=== PATIENT | male | born 1960 | race American Indian/Alaskan Native ===

== ENCOUNTER 2017-08-12 07:09 | Inpatient (IN) | payer MEDICARE, OTHER, MEDICAID ==
[2017-08-12 07:14] VITALS: BMI 29.1
[2017-08-12 08:15] LABS: BASO # 0.01 K/mm3 (0.0-2.0); BASO % 0.1 % (0.0-3.0); EOS % 0.2 % (1.5-5.0); GRAN # 9.5 (1.4-6.5); GRAN % 78.1 % (50.0-68.0); HEMOGLOBIN 9.6 g/dL (14.0-18.0); LYMPH # 1.5 (1.2-3.4); LYMPH % 12.2 % (22.0-35.0); MEAN CELL VOLUME 86.8 fl (80.0-105.0); MEAN CORPUSCULAR HEMOGLOBIN 28.2 pg (25.0-35.0); MEAN CORPUSCULAR HGB CONC 32.5 g/dl (31.0-37.0); MEAN PLATELET VOLUME 11.4 fl (7.0-11.0); MONO # 1.1 (0.1-0.6); MONO % 9.4 % (1.0-6.0); RBC 3.4 10^6/uL (3.5-6.1); RED CELL DISTRIBUTION WIDTH 14.9 % (11.5-14.5); WHITE BLOOD COUNT 12.2 10^3/ul (4.5-11.0)
[2017-08-12 08:27] LABS: INR 1.23 (0.93-1.08); PARTIAL THROMBOPLASTIN TIME 27.2 Seconds (25.1-36.5); PROTHROMBIN TIME 14.2 SECONDS (9.4-12.5)
[2017-08-12 08:33] LABS: ALB/GLOB RATIO 1.1 (1.1-1.8); ALBUMIN 3.2 g/dL (3.0-4.8); CALCIUM 9.7 mg/dL (8.4-10.5)
[2017-08-12 08:44] LABS: TROPONIN I 0.1 ng/mL
--- NOTE | 2017-08-12 08:45 | RAD ---
HISTORY: SOB COMPARISON: No prior. FINDINGS: LUNGS: Perihilar density is patchy in suspicious for early CHF or infiltrates. Reticular markings do not appear particularly increased and therefore pneumonia is slightly favored over CHF. Clinically correlate further. Cardiac size is enlarged. No pneumothorax or prominent pleural effusion bilaterally. Trace thickening of the minor fissure is noted versus fluid. PLEURA: As above. CARDIOVASCULAR: As above. OSSEOUS STRUCTURES: No significant abnormalities. VISUALIZED UPPER ABDOMEN: Normal. OTHER FINDINGS: None. IMPRESSION: Mild bilateral hilar pneumonia is questioned versus CHF. Clinically correlate further.
[2017-08-12] MEDS ORDERED: Azithromycin 500MG/NS 250ml 500 MG/250 ML BAG IVPB STA (08:49)
[2017-08-12] MEDS ORDERED: cefTRIAXone 1 gm 1 GM/100 ML BAG IVPB STA (08:50)
[2017-08-12 08:56] LABS: CK MB% 2.3 % (2.5-3.0); CK-MB 8.5 ng/mL (0.0-3.6)
--- NOTE | 2017-08-12 10:23 | ED PDOC ---
Arrival/HPI - General Chief Complaint: Shortness Of Breath Time Seen by Provider: 08/12/17 07:20 Historian: Patient - History of Present Illness Narrative History of Present Illness (Text): 08/12/17 10:20 Barak Ko is a 57 year old male, with no significant past medical history, who presents to the emergency department complaining of shortness of breath and cough for a couple of days. Patient states he feels "increased fluid in the body ". Patient just went on a cruise ship. Patient denies any fever, chills, chest pain, nausea, vomiting, diarrhea, abdominal pain, back pain, neck pain, headache , dizziness, or any other complaints. 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 Family/Social History - Physician Review Nursing Documentation Reviewed: Yes Family/Social History: Unknown Family HX Smoking Status: Never Smoked Hx Alcohol Use: No Hx Substance Use: No Allergies/Home Meds Allergies/Adverse Reactions: Allergies codeine Adverse Reaction (Verified 08/12/17 07:14) RASH Home Medications: Home Meds Medication Instructions Recorded Confirmed Aspirin [Aspirin Chewable] 1 tab PO DAILY 08/12/17 08/12/17 Atorvastatin [Lipitor] 40 mg PO DAILY 08/12/17 08/12/17 Calcitriol 25 mg PO DAILY 08/12/17 08/12/17 Carvedilol [Coreg] 1 tab PO DAILY 08/12/17 08/12/17 Cholecalciferol [Vitamin D 1000 IU] 2,000 iu PO DAILY 08/12/17 08/12/17 Doxazosin [Cardura] 8 mg PO DAILY 08/12/17 08/12/17 Ferrous Sulfate 5 gm PO DAILY 08/12/17 08/12/17 Furosemide [Lasix] 80 mg PO DAILY 08/12/17 08/12/17 Gabapentin [Neurontin] 300 mg PO DAILY 08/12/17 08/12/17 Insulin Glargine,Hum.rec.anlog 15 unit SC ACHS 08/12/17 08/12/17 [Lantus Solostar] Potassium Chloride [K-Dur 20 mEq 1 tab PO DAILY 08/12/17 08/12/17 ER Tab] Sertraline [Zoloft] 100 mg PO DAILY 08/12/17 08/12/17 Tetrabenazine [Xenazine] 1 tab PO DAILY 08/12/17 08/12/17 Tiotropium [Spiriva] 1 puff INH DAILY 08/12/17 08/12/17 amLODIPine [Norvasc] 5 mg PO DAILY 08/12/17 08/12/17 hydrALAZINE [Apresoline] 100 mg PO DAILY 08/12/17 08/12/17 Review of Systems - Physician Review All systems were reviewed & negative as marked: Yes - Review of Systems Constitutional: Normal Eyes: Normal ENT: Normal Respiratory: SOB, Cough Cardiovascular: Normal. absent: Chest Pain Gastrointestinal: Normal. absent: Abdominal Pain Genitourinary Male: Normal. absent: Dysuria, Frequency, Hematuria, Urinary Output Changes Musculoskeletal: Normal. absent: Back Pain, Neck Pain Skin: Normal. absent: Rash Neurological: Normal. absent: Headache, Dizziness Endocrine: Normal Hemo/Lymphatic: Normal Psychiatric: Normal Physical Exam Vital Signs Reviewed: Yes Vital Signs Pulse Resp BP Pulse Ox 08/12/17 09:10 81 18 169/97 H 95 08/12/17 08:59 169/99 H 08/12/17 07:23 20 92 L Temperature: Afebrile Blood Pressure: Normal Pulse: Regular Respiratory Rate: Normal Appearance: Positive for: Well-Appearing, Non-Toxic, Comfortable Pain Distress: None Mental Status: Positive for: Alert and Oriented X 3 - Systems Exam Head: Present: Atraumatic, Normocephalic Pupils: Present: PERRL Extroacular Muscles: Present: EOMI Conjunctiva: Present: Normal Mouth: Present: Moist Mucous Membranes Neck: Present: Normal Range of Motion Respiratory/Chest: Present: Rales (Rales bilaterally ). No: Respiratory Distress, Accessory Muscle Use Cardiovascular: Present: Murmurs (Systolic Murmur), Normal S1, S2. No: Regular Rate and Rhythm Abdomen: Present: Normal Bowel Sounds. No: Tenderness, Distention, Peritoneal Signs Back: Present: Normal Inspection Upper Extremity: Present: Normal Inspection. No: Cyanosis, Edema Lower Extremity: Present: Edema (Bilateral lower extremity edema) Neurological: Present: GCS=15, CN II-XII Intact, Speech Normal Skin: Present: Warm, Dry, Normal Color. No: Rashes Psychiatric: Present: Alert, Oriented x 3, Normal Insight, Normal Concentration Medical Decision Making ED Course and Treatment: 08/12/17 10:25 Impression: 57 year old male presents to the emergency department complaining of shortness of breath and cough for a couple days. Plan: -- EKG -- Labs -- Blood Culture -- O2 via Nasal Cannula -- Lasix -- Rocephin -- Zithromax -- Reassess and disposition Progress Notes: Case discussed with Dr. Pendleton who is aware and agrees with plan. Admits pt to telemetry for pneumonia and acute chronic renal failure. 08/12/17 10:29 EKG reviewed, shows Sinus at 81 bpm. T wave inversions in lateral leads. LVH. - Lab Interpretations Lab Results: 08/12/17 08:00 08/12/17 08:00 Lab Results 08/12/17 08:00: Influenza Typ A,B (EIA) Negative for flu a/b 08/12/17 08:00: Sodium 139, Potassium 3.7, Chloride 103, Carbon Dioxide 25, Anion Gap 14, BUN 58 H, Creatinine 4.1 H, Est GFR ( Amer) 18, Est GFR ( Non-Af Amer) 15, Random Glucose 283 H, Calcium 9.7, Magnesium 2.1, Total Bilirubin 0.2, AST 28, ALT 41, Alkaline Phosphatase 81, Lactate Dehydrogenase 558, Total Creatine Kinase 365 H, CK-MB (CK-2) 8.5 H, CK-MB (CK-2) % 2.3 L, Troponin I 0.10, NT-Pro-B Natriuret Pep 8120 H, Total Protein 6.0, Albumin 3.2, Globulin 2.8, Albumin/Globulin Ratio 1.1 08/12/17 08:00: PT 14.2 H, INR 1.23 H, APTT 27.2 08/12/17 08:00: WBC 12.2 H, RBC 3.40 L, Hgb 9.6 L, Hct 29.5 L, MCV 86.8, MCH 28.2, MCHC 32.5, RDW 14.9 H, Plt Count 185, MPV 11.4 H, Gran % 78.1 H, Lymph % ( Auto) 12.2 L, [place] % (Auto) 9.4 H, Eos % (Auto) 0.2 L, Baso % (Auto) 0.1, Gran # 9.50 H, Lymph # (Auto) 1.5, [place] # (Auto) 1.1 H, Eos # (Auto) 0.0, Baso # ( Auto) 0.01 08/12/17 07:45: Blood Type O POSITIVE, Antibody Screen Negative, BBK History Checked No verified bt - RAD Interpretation Radiology Orders: 08/12/17 07:23 CHEST PORTABLE [RAD] Stat - Medication Orders Current Medication Orders: Amlodipine Besylate (Norvasc) 5 mg PO DAILY [facility] Last Admin: 08/12/17 11:41 Dose: 5 mg [facility] Pulse and Blood Pressure Document 08/12/17 11:41 VM (Rec: 08/12/17 11:41 [place] [id number]) Pulse Pulse Rate (60-90) 84 Blood Pressure Blood Pressure (100/60-150/90) 176/101 Aspirin (Aspirin Chewable) 81 mg PO DAILY [facility] Atorvastatin Calcium (Lipitor) 40 mg PO DAILY [facility] Calcitriol (Rocaltrol) 0.25 mcg PO DAILY [facility] Carvedilol (Coreg) 25 mg PO DAILY [facility] Last Admin: 08/12/17 11:40 Dose: 25 mg MAR Pulse and Blood Pressure Document 08/12/17 11:40 VM (Rec: 08/12/17 11:41 [id number]) Pulse Pulse Rate (60-90) 84 Blood Pressure Blood Pressure (100/60-150/90) 176/101 Cholecalciferol (Vitamin D) 2,000 intlu PO DAILY [facility] Doxazosin Mesylate (Cardura) 8 mg PO DAILY [facility] Last Admin: 08/12/17 11:41 Dose: 8 mg Ferrous Gluconate (Fergon) 324 mg PO TID [facility] Last Admin: 08/12/17 17:00 Dose: 324 mg Furosemide (Lasix) 40 mg IVP BID [facility] Last Admin: 08/12/17 17:00 Dose: 40 mg MAR Blood Pressure Document 08/12/17 17:00 AE (Rec: 08/12/17 17:00 AE [id number]) Blood Pressure Blood Pressure (100/60-150/90) 146/88 IVP Administration Document 08/12/17 17:00 AE (Rec: 08/12/17 17:00 AE [id number]) Charges for Administration # of IVP Administrations 7 Gabapentin (Neurontin) 300 mg PO DAILY [facility] PRN Reason: Protocol Hydralazine HCl (Apresoline) 100 mg PO BID [facility] Last Admin: 08/12/17 17:01 Dose: 100 mg MAR Pulse and Blood Pressure Document 08/12/17 17:01 AE (Rec: 08/12/17 17:01 AE [id number]) Pulse Pulse Rate (60-90) 76 Blood Pressure Blood Pressure (100/60-150/90) 158/83 Ceftriaxone Sodium (Rocephin 1 Gram Ivpb) 1 gm in 100 mls @ 100 mls/hr IVPB DAILY [facility] PRN Reason: Protocol Azithromycin (Zithromax 500mg In Ns) 500 mg in 250 mls @ 167 mls/hr IVPB DAILY [facility] PRN Reason: Protocol Last Admin: 08/12/17 11:35 Dose: Insulin Detemir (Levemir) 15 unit SC HS [facility] Insulin Human Regular (Humulin R High) 0 units SC ACHS [facility] PRN Reason: Protocol Last Admin: 08/12/17 16:21 Dose: 2 units MAR Blood Glucose Document 08/12/17 16:21 AE (Rec: 08/12/17 16:21 AE [id number]) Blood Glucose Finger Stick Blood Glucose (70-120) 157 Subcutaneous Administrations Document 08/12/17 16:21 AE (Rec: 08/12/17 16:21 AE [id number]) Injection Site MAR Injection Site Left Arm Charges for Administration # of Subcutaneous Administrations 1 Tetrabenazine [ Xenazine] (Home Med) 1 tab PO DAILY [facility] Potassium Chloride (K-Dur 20 Meq Er Tab) 20 meq PO DAILY [facility] Tiotropium [place] (Spiriva) 18 mcg INH DAILY [facility] Vitamin B Complex/Vit C/Folic Acid (Nephro-[place]) 1 tab PO 0800 [facility] Discontinued Medications Aspirin (Aspirin Chewable) 1 mg PO DAILY [facility] Furosemide (Lasix) 40 mg IVP STAT STA Stop: 08/12/17 08:52 Last Admin: 08/12/17 08:59 Dose: 40 mg MAR Blood Pressure Document 08/12/17 08:59 EWO (Rec: 08/12/17 09:00 EWO [id number]) Blood Pressure Blood Pressure (100/60-150/90) 169/99 IVP Administration Document 08/12/17 08:59 EWO (Rec: 08/12/17 09:00 EWO [id number]) Charges for Administration # of IVP Administrations 1 Furosemide (Lasix) 40 mg IVP DAILY [facility] Furosemide (Lasix) 40 mg IVP STAT STA Stop: 08/12/17 11:22 Last Admin: 08/12/17 11:31 Dose: 40 mg MAR Blood Pressure Document 08/12/17 11:31 VM (Rec: 08/12/17 11:32 [place] [id number]) Blood Pressure Blood Pressure (100/60-150/90) 176/101 IVP Administration Document 08/12/17 11:31 VM (Rec: 08/12/17 11:32 [place] [id number]) Charges for Administration # of IVP Administrations 1 Hydralazine HCl (Apresoline) 100 mg PO DAILY [facility] Last Admin: 08/12/17 13:24 Dose: 100 mg MAR Pulse and Blood Pressure Document 08/12/17 13:24 AE (Rec: 08/12/17 13:24 AE [id number]) Pulse Pulse Rate (60-90) 74 Blood Pressure Blood Pressure (100/60-150/90) 158/96 Ceftriaxone Sodium (Rocephin 1 Gram Ivpb) 1 gm in 100 mls @ 100 mls/hr IVPB STAT STA PRN Reason: Protocol Stop: 08/12/17 09:49 Last Admin: 08/12/17 09:00 Dose: 100 mls/hr eMAR Start Stop Document 08/12/17 09:00 EWO (Rec: 08/12/17 09:00 EW [id number]) Intravenous Solution Start Date 08/12/17 Start Time 09:00 End Date 08/12/17 End time 10:00 Total Infusion Time 60 Azithromycin (Zithromax 500mg In Ns) 500 mg in 250 mls @ 167 mls/hr IVPB STAT STA PRN Reason: Protocol Stop: 08/12/17 10:18 Last Admin: 08/12/17 10:00 Dose: 167 mls/hr eMAR Start Stop Document 08/12/17 10:00 EWO (Rec: 08/12/17 10:01 EWO [id number] Intravenous Solution Start Date 08/12/17 Start Time 10:01 End Date 08/12/17 End time 11:30 Total Infusion Time 89 - Scribe Statement The provider has reviewed the documentation as recorded by the Jinaibesmer Weaver All medical record entries made by the Scribe were at my direction and personally dictated by me. I have reviewed the chart and agree that the record accurately reflects my personal performance of the history, physical exam, medical decision making, and the department course for this patient. I have also personally directed, reviewed, and agree with the discharge instructions and disposition. Disposition/Present on Arrival - Present on Arrival Any Indicators Present on Arrival: No History of DVT/PE: No History of Uncontrolled Diabetes: Yes Urinary Catheter: No History of Decub. Ulcer: No History Surgical Site Infection Following: None - Disposition Have Diagnosis and Disposition been Completed?: Yes Diagnosis: CHF exacerbation, Acute on chronic renal failure, Pneumonia Disposition: HOSPITALIZED Disposition Time: 08:45 Condition: FAIR
--- NOTE | 2017-08-12 11:30 | CP.PCM.CON ---
<Erich Mcgarry - Last Filed: 08/12/17 11:52> History of Present Illness - History of Present Illness History of Present Illness: 57 year old male with past medical history of DM, CKD Stage 3, HTN, PVD, stroke 9 years ago presents with shortness of breath from a cruise ship. Patient states he was on the cruise for 7 days and for the last couple of days he has felt short of breath and also "swollen". Patients states patient had an echo done within the past two years and was normal at the time. He denies any sick contacts or recent illness. Patient denies chest pain, fever, chills, nausea, abdominal pain or any other complaints at this time. PMH: DM, CKD Stage 3, HTN, PVD, stroke 9 years go PSH: denies Allergies: codeine Medications: See MAR Family Hx: NCO Social: denies tobacco, alcohol, or illicit drug use Review of Systems - Review of Systems Review of Systems: As per HPI - Constitutional Constitutional: Chills, Fever, Night Sweats - Cardiovascular Cardiovascular: Chest Pain Past Patient History - Infectious Disease Hx of Infectious Diseases: None - Past Social History Smoking Status: Never Smoked - CARDIAC Hx Cardiac Disorders: Yes Hx Congestive Heart Failure: (new dx) Hx Peripheral Vascular Disease: Yes - HEENT Other/Comment: wears glasses - RENAL Hx Chronic Kidney Disease: Yes Other/Comment: stage 3 kidney disease; on transplant list - ENDOCRINE/METABOLIC Hx Diabetes Mellitus Type 2: Yes - PSYCHIATRIC Hx Substance Use: No - SURGICAL HISTORY 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) Meds Allergies/Adverse Reactions: Allergies Allergy/AdvReac Type Severity Reaction Status Date / Time codeine AdvReac RASH Verified 08/12/17 07:14 - Medications Medications: Current Medications Amlodipine Besylate (Norvasc) 5 mg PO DAILY REPLACED BY [facility] Aspirin (Aspirin Chewable) 81 mg PO DAILY REPLACED BY [facility] Atorvastatin Calcium (Lipitor) 40 mg PO DAILY REPLACED BY [facility] Calcitriol (Rocaltrol) 0.25 mcg PO DAILY REPLACED BY [facility] Carvedilol (Coreg) 25 mg PO DAILY REPLACED BY [facility] Cholecalciferol (Vitamin D) 2,000 intlu PO DAILY REPLACED BY [facility] Doxazosin Mesylate (Cardura) 8 mg PO DAILY REPLACED BY [facility] Furosemide (Lasix) 40 mg IVP BID REPLACED BY [facility] Gabapentin (Neurontin) 300 mg PO DAILY [facility] PRN Reason: Protocol Hydralazine HCl (Apresoline) 100 mg PO BID [facility] Ceftriaxone Sodium (Rocephin 1 Gram Ivpb) 1 gm in 100 mls @ 100 mls/hr IVPB DAILY [facility] PRN Reason: Protocol Azithromycin (Zithromax 500mg In Ns) 500 mg in 250 mls @ 167 mls/hr IVPB DAILY [facility] PRN Reason: Protocol Insulin Detemir (Levemir) 15 unit SC HS [facility] Insulin Human Regular (Humulin R High) 0 units SC ACHS [facility] PRN Reason: Protocol Tetrabenazine [ Xenazine] (Home Med) 1 tab PO DAILY [facility] Potassium Chloride (K-Dur 20 Meq Er Tab) 20 meq PO DAILY [facility] Tiotropium [place] (Spiriva) 18 mcg INH DAILY [facility] Physical Exam - Constitutional Appears: Non-toxic, No Acute Distress - Head Exam Head Exam: ATRAUMATIC, NORMAL INSPECTION, NORMOCEPHALIC - Eye Exam Eye Exam: EOMI, Normal appearance, PERRL - ENT Exam ENT Exam: Mucous Membranes Moist - Neck Exam Neck exam: Negative for: Lymphadenopathy - Respiratory Exam Respiratory Exam: absent: Clear to Auscultation Bilateral Additional comments: crackles - Cardiovascular Exam Cardiovascular Exam: REGULAR RHYTHM, +S1, +S2 - GI/Abdominal Exam GI & Abdominal Exam: Normal Bowel Sounds. absent: Distended, Tenderness - Extremities Exam Extremities exam: Positive for: pedal edema - Neurological Exam Neurological exam: Alert, Oriented x3 - Skin Skin Exam: Normal Color, Warm Results - Vital Signs Recent Vital Signs: Last Vital Signs Temp Pulse 81 08/12/17 09:10 Resp 18 08/12/17 09:10 BP 169/97 H 08/12/17 09:10 Pulse Ox 95 08/12/17 09:10 - Labs Result Diagrams: 08/12/17 08:00 08/12/17 08:00 Assessment & Plan - Assessment and Plan (Free Text) Assessment: 7 year old male with past medical history of DM, CKD Stage 3, HTN, PVD, stroke 9 years ago presents with shortness of breath. Patient will be monitored in the ICU for CHF exacerbation. Plan: CHF CKD DM HTN Plan: -supplemental oxygen as needed, maintain sat>92% -diuresis -BNP -chest xray -replete electrolytes -UA -monitor kidney function -renal US -Nephro following -daily labs -strict IOs -ISS -procal -mitchell culture -echo -cardiology following -continue home meds for bp control -abx -HHD -monitor in the MICU -GI, DVT Prophylaxis <Tico Patel - Last Filed: 08/12/17 12:22> Meds - Medications Medications: Current Medications Amlodipine Besylate (Norvasc) 5 mg PO DAILY REPLACED BY [facility] Last Admin: 08/12/17 11:41 Dose: 5 mg Aspirin (Aspirin Chewable) 81 mg PO DAILY REPLACED BY [facility] Atorvastatin Calcium (Lipitor) 40 mg PO DAILY REPLACED BY [facility] Calcitriol (Rocaltrol) 0.25 mcg PO DAILY REPLACED BY [facility] Carvedilol (Coreg) 25 mg PO DAILY REPLACED BY [facility] Last Admin: 08/12/17 11:40 Dose: 25 mg Cholecalciferol (Vitamin D) 2,000 intlu PO DAILY [facility] Doxazosin Mesylate (Cardura) 8 mg PO DAILY REPLACED BY [facility] Last Admin: 08/12/17 11:41 Dose: 8 mg Furosemide (Lasix) 40 mg IVP BID REPLACED BY [facility] Gabapentin (Neurontin) 300 mg PO DAILY REPLACED BY [facility] PRN Reason: Protocol Hydralazine HCl (Apresoline) 100 mg PO BID REPLACED BY [facility] Ceftriaxone Sodium (Rocephin 1 Gram Ivpb) 1 gm in 100 mls @ 100 mls/hr IVPB DAILY REPLACED BY [facility] PRN Reason: Protocol Azithromycin (Zithromax 500mg In Ns) 500 mg in 250 mls @ 167 mls/hr IVPB DAILY [facility] PRN Reason: Protocol Last Admin: 08/12/17 11:35 Dose: Not Given Insulin Detemir (Levemir) 15 unit SC HS REPLACED BY [facility] Insulin Human Regular (Humulin R High) 0 units SC ACHS REPLACED BY [facility] PRN Reason: Protocol Last Admin: 08/12/17 11:42 Dose: 4 units Tetrabenazine [ Xenazine] (Home Med) 1 tab PO DAILY REPLACED BY [facility] Potassium Chloride (K-Dur 20 Meq Er Tab) 20 meq PO DAILY REPLACED BY [facility] Tiotropium [place] (Spiriva) 18 mcg INH DAILY REPLACED BY [facility] Results - Vital Signs Recent Vital Signs: Last Vital Signs Temp 98 F 08/12/17 11:29 Pulse 84 08/12/17 11:41 Resp 22 08/12/17 11:29 BP 176/101 H 08/12/17 11:41 Pulse Ox 95 08/12/17 09:10 - Labs Result Diagrams: 08/12/17 08:00 08/12/17 08:00 Labs: Laboratory Results - last 24 hr 08/12/17 08/12/17 08/12/17 11:05 11:05 11:27 POC Glucose (mg/dL) 213 H Iron TIBC % Saturation Troponin I 0.09 Blood Type Confirm O POSITIVE 08/12/17 11:41 POC Glucose (mg/dL) Iron 32 L TIBC 185 L % Saturation 17 L Troponin I Blood Type Confirm Assessment & Plan - Assessment and Plan (Free Text) Plan: Patient seen and examined with resident on rounds, agree with note with following additions/exceptions: Patient is 57yo male with PMhx of CKD stage III, HTN, CVA with no residual weakness, presented after cruise ship with weakness and SOB. Pt with volume overload and possible consolidation on CXR Volume Overload CHF CKD HTN PNA Recommend: - supp o2 as needed - panculture, UCx, BCx, Procal - CAP coverage, Azithro, Rocephin - IV diuresis - ECHO - cardiology consult - Renal consult - BP control - FS control - GI ppx - DVT ppx - Transfer to CCU
[2017-08-12] MEDS: Azithromycin 500MG/NS 250ml 500 MG/250 ML BAG IVPB SCH (11:35)
[2017-08-12] MEDS: Insulin Reg-HIGH-Coverage SC SCH ×3 (11:42→22:03)
[2017-08-12 11:59] LABS: IRON 32 ug/dL (45-180)
[2017-08-12 12:08] LABS: % IRON SATURATION 17 % (20-55); TOTAL IRON BINDING CAPACITY 185 ug/dL (261-462)
--- NOTE | 2017-08-12 12:23 | CON ---
DATE: 08/12/2017 CARDIOLOGY CONSULTATION HISTORY OF PRESENT ILLNESS: The patient is a 57-year-old male who just came off the cruise ship with 2 days of progressive CHF symptoms and dyspnea. PAST MEDICAL HISTORY: Includes multiorgan disease including renal insufficiency, hypertension, diabetes mellitus as well as hypercholesterolemia. He denies previous history of cardiac disease. He does admit to intermittent pedal edema. No angina noted. SOCIAL HISTORY: The patient denies smoking. REVIEW OF SYSTEMS: A 14-point review of systems was reviewed in detail. No additional cardiac symptoms are noted. PHYSICAL EXAMINATION VITAL SIGNS: Blood pressure is 169/97, heart rate is in the 80s. NECK: Negative JVD. LUNGS: Bilateral rales at the bases. HEART: Reveals S1, S2. EXTREMITIES: Trace edema. LABORATORY DATA: EKG shows normal sinus rhythm with diffuse ST-T changes. The hemoglobin is 9.7, white count is 12.2. Troponins is 0.10 with a BUN and creatinine is 58 and 4.1 with a ProBNP of 8120. The pulse ox is 90%. IMPRESSION: 1. Acute systolic congestive heart failure. 2. Questionable pneumonia. 3. Renal insufficiency. 4. Diabetes mellitus. 5. Hypertension. 6. Hypercholesterolemia. 7. Dyspnea. 8. Intermittent pedal edema. 9. Renal insufficiency. PLAN: Given these findings, we will add an additional Lasix to him. The patient should be monitored in the ICU given his low O2 and his multisystem disease. There is a question of a non-STEMI. Dale Yeh MD
--- NOTE | 2017-08-12 13:04 | CP.PCM.CON ---
History of Present Illness - History of Present Illness History of Present Illness: Nephrology Consultation Note: Assessment: Critical Acute dyspnea with fluid overload and pneumonia ? CHF ? COPD Acute Kidney Injury (N17.9) Diabetic chronic Kidney Disease (E11.22) Hypertensive Chronic Kidney Disease (I12.9) Chronic Kidney Disease (N18.4) Stage 4 with ? mg proteinuria (R80.9) likely due to DM/HTN Anemia (D64.9), Hyperphosphatemia (E83.39), Secondary Hyperparathyroidism (E21.1 ), HTN (I12.9) Plan No acute need for renal replacement therapy at this time. Hypertension control with meds as ordered. Patient not on ACEI/ARB due to AGUST[facility] Monitor Input/Output, daily weights and renal function with basic metabolic panel We will add iron supplements and multivitamin Continue home dose of calcitriol Agree with IV Lasix. Increase dose Up to 80 mg if needed. Check urine analysis, spot protein/creatinine and albumin/creatinine ratio, renal sonogram. Check for 25-OH vitamin D, iPTH, phosphorus level Check iron studies Dose meds/antibiotics for reduced GFR. Avoid fleets enema/magnesium based laxatives. Avoid nephrotoxins/NSAIDs/ iodinated contrast (unless needed emergently) Glycemic control Further work up/management as per primary team Thanks for allowing me to participate in care of your patient. Will follow patient with you. Please call if any Qs Dr Augustin Alcantara Office: [phone] Chief Complaint; Shortness of breath HPI: Pt is a 57 male with hx of diabetes Mellitus ( 18 years) With Retinopathy, hypertension (years), CKD 4 with baseLine serum creatinine in mid 3 range, Patient aware about kidney disease for the last 10 years, follows up in [place], was on a cruise for last 7 days presented with complaints of Shortness of breath for the last 3 days with associated cough phlegm and leg swelling. pt also noted to have low-grade temperature on the cruise. He was not able to follow low salt diet while on the cruise Denies OTC/herbal meds or NSAIDs No recent iodinated contrast exposure. No obvious episodes of low BP. ROS: Cardiovascular: No chest pain. Pulmonary:c/o shortness of breath Gastrointestinal: denies abdominal pain No nausea. No vomiting. Genitourinary: No pain while urinating. Denies blood in urine. All other negative except as mentioned in HPI Physical Examination: General Appearance: Comfortable, in no acute respiratory distress, co-operative . Vitals reviewed and noted as below Head; Atraumatic, normocephalic ENT: no ulcers no thrush. Tongue is midline. Oropharynx: no rash or ulcers. EYES: Pupils are equal, round and reactive to light accommodation. Eye muscles and extraocular movement intact. Sclera is anicteric. Neck; supple no lymphadenopathy, no thyromegaly or bruit Lungs: Increased respiratory rate/effort. Breath sounds bilateral equal and With wheezing Heart: Normal rate. s1s2 normal. No rub or gallop. Extremities: 1+ edema. No varicose veins Neurological: Patient is alert, awake and oriented to person, place and time. No focal deficit. Strength bilateral appropriate and equal Skin: Warm and dry. Normal turgor. No rash. Palpitation: Normal elasticity for age Abdomen: Abdomen is soft. Bowel sounds +. There is no abdominal tenderness, no guarding/rigidity no organomegaly Psych: normal insight and normal affect/mood MSK: no joint tenderness or swelling. Digits and nails normal, no deformity : kidney or bladder not palpable Labs/imaging reviewed. Past medical history, past surgical history, family history, social history, allergy reviewed and noted as below Family hx: no hx of CKD. 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) Meds Allergies/Adverse Reactions: Allergies Allergy/AdvReac Type Severity Reaction Status Date / Time codeine AdvReac RASH Verified 08/12/17 07:14 - Medications Medications: Current Medications Amlodipine Besylate (Norvasc) 5 mg PO DAILY [facility] Last Admin: 08/12/17 11:41 Dose: 5 mg Aspirin (Aspirin Chewable) 81 mg PO DAILY [facility] Atorvastatin Calcium (Lipitor) 40 mg PO DAILY [facility] Calcitriol (Rocaltrol) 0.25 mcg PO DAILY [facility] Carvedilol (Coreg) 25 mg PO DAILY [facility] Last Admin: 08/12/17 11:40 Dose: 25 mg Cholecalciferol (Vitamin D) 2,000 intlu PO DAILY [facility] Doxazosin Mesylate (Cardura) 8 mg PO DAILY [facility] Last Admin: 08/12/17 11:41 Dose: 8 mg Ferrous Gluconate (Fergon) 324 mg PO TID [facility] Furosemide (Lasix) 40 mg IVP BID [facility] Gabapentin (Neurontin) 300 mg PO DAILY [facility] Reason: Protocol Hydralazine HCl (Apresoline) 100 mg PO BID [facility] Ceftriaxone Sodium (Rocephin 1 Gram Ivpb) 1 gm in 100 mls @ 100 mls/hr IVPB DAILY [facility] Reason: Protocol Azithromycin (Zithromax 500mg In Ns) 500 mg in 250 mls @ 167 mls/hr IVPB DAILY [facility] Reason: Protocol Last Admin: 08/12/17 11:35 Dose: Not Given Insulin Detemir (Levemir) 15 unit SC HS [facility] Insulin Human Regular (Humulin R High) 0 units SC ACHS [facility] Reason: Protocol Last Admin: 08/12/17 11:42 Dose: 4 units Tetrabenazine [ Xenazine] (Home Med) 1 tab PO DAILY [facility] Potassium Chloride (K-Dur 20 Meq Er Tab) 20 meq PO DAILY [facility] Tiotropium [place] (Spiriva) 18 mcg INH DAILY [facility] Vitamin B Complex/Vit C/Folic Acid (Nephro-[place]) 1 tab PO 0800 [facility] Results - Vital Signs Recent Vital Signs: Last Vital Signs Temp 98 F 08/12/17 11:29 Pulse 84 08/12/17 11:41 Resp 22 08/12/17 11:29 BP 176/101 H 08/12/17 11:41 Pulse Ox 90 L 08/12/17 11:00 - Labs Result Diagrams: 08/12/17 08:00 08/12/17 08:00 Labs: Laboratory Results - last 24 hr 08/12/17 08/12/17 08/12/17 11:05 11:05 11:27 POC Glucose (mg/dL) 213 H Iron TIBC % Saturation Troponin I 0.09 Blood Type Confirm O POSITIVE 08/12/17 11:41 POC Glucose (mg/dL) Iron 32 L TIBC 185 L % Saturation 17 L Troponin I Blood Type Confirm
--- NOTE | 2017-08-12 14:13 | US ---
PROCEDURE: Ultrasound of the Kidneys HISTORY: [facility] COMPARISON: None available. TECHNIQUE: Sonogram of the kidneys. FINDINGS: RIGHT KIDNEY: Measures: 11.9 x 5.2 x 4.8 cm. Corticomedullary echo pattern is poor with no differentiation appreciable in the repaired appearing slightly echogenic suggesting intrinsic medical renal disease. Multiple right renal cysts are identified, all which appear benign and simple with no color Doppler blood flow related. midpole right kidney laterally measuring 2.2 x 2.3 x 2.2 cm. Additional similar but smaller cysts are identified in the upper mid and lower pole right kidney. No definite solid mass identified grossly. No right hydronephrosis. No urolithiasis. LEFT KIDNEY: Measures: 13.3 x 6.8 x 5.8 cm. Corticomedullary echo pattern is poor with no differentiation appreciable in the repaired appearing slightly echogenic suggesting intrinsic medical renal disease. Multiple right renal cysts are identified, all which appear benign and simple with no color Doppler blood flow related. The largest is identified at the upper pole, slightly exophytic measuring 4.7 x 4.4 x 4.3 cm. No hydronephrosis or urolithiasis. OTHER FINDINGS: None. IMPRESSION: Findings most compatible with intrinsic medical renal disease. No hydronephrosis identified bilaterally. Multiple bilateral renal cysts are identified which appear benign.
[2017-08-12 16:16] LABS: CREATININE,RANDOM URINE 47 mg/dL; TOTAL PROTEIN,RANDOM URINE 114 mg/L
[2017-08-12 16:23] LABS: URINE BILIRUBIN NEGATIVE (NEGATIVE); URINE BLOOD NEGATIVE (NEGATIVE); URINE GLUCOSE (UA) NEGATIVE (NEGATIVE); URINE LEUKOCYTE ESTERASE NEGATIVE Leu/uL (NEGATIVE); URINE PROTEIN 100 mg/dL (<30 mg/dL); URINE UROBILINOGEN 0.2 E.U./dL (<1 E.U./dL)
[2017-08-12 16:24] LABS: URINE APPEARANCE CLEAR (CLEAR); URINE COLOR LIGHT YELLOW (YELLOW)
[2017-08-12 16:28] LABS: URINE RBC 0 - 2 /hpf (0-2)
[2017-08-12 16:29] LABS: URINE AMORPHOUS SEDIMENT FEW; URINE BACTERIA MOD (NEG); URINE COARSE GRANULAR CAST TRACE /hpf (0-2); URINE FINE GRANULAR CAST 0 - 2 /hpf (0-2)
--- NOTE | 2017-08-12 21:35 | HP ---
HISTORY OF PRESENT ILLNESS: I was called down to the emergency room to see Barak, admitted him to the hospital, he comes from a cruise ship, he was in the [facility], and he was not eating well, lots of bad foods, lots of salty foods and sugary foods, and now he is very short of breath and coughing for a few days. Feels like there is flu in his body. PAST MEDICAL HISTORY: He has got a past medical history of hypertension, diabetes, CHF, obesity, amputation of the fourth and fifth toes on the left. He has high cholesterol, CHF, peripheral neuropathy, depression, hypertension. FAMILY HISTORY: Hypertension and diabetes in the family. SOCIAL HISTORY: He does not smoke. He does drink alcohol. No substance abuse. ALLERGIES: HE HAS ALLERGIES TO CODEINE. MEDICATIONS: He is on aspirin, Lipitor, calcitriol, Coreg, vitamin D, iron, Lasix, Neurontin, Lantus, potassium, Zoloft, Spiriva, Norvasc, Apresoline. REVIEW OF SYSTEMS: No acute vision or hearing changes. No sore throat. No neck pain. He is short of breath with cough. No chest pain or palpitations. No nausea, vomiting, constipation, or diarrhea. No problems urinating. No back pain. No apparent rashes or ulcers he knows of. No headache or dizziness. No anxiety or depression. No sweating. PHYSICAL EXAMINATION: VITAL SIGNS: He has an 81 pulse, 18 respiratory rate, 169/97 blood pressure, 95% O2 sat on room air. GENERAL: He is well appearing and comfortable. Alert and oriented x3 in the ER. HEENT: Head is atraumatic, normocephalic. Extraocular muscles are intact. Pupils equal and reactive to light. Throat is moist. NECK: Supple. HEART: Regular rate. Normal S1 and S2. LUNGS: Congestion bilaterally with rales and rhonchi. ABDOMEN: Soft and nontender, with positive bowel sounds. Morbidly obese. No guarding. No rebound. No CVA tenderness. EXTREMITIES: Have trace edema in bilateral lower extremities, +1/4. NEUROLOGIC: GCS is 15. Cranial nerves II through XII grossly intact. Speech is normal. SKIN: Warm and dry. No apparent rashes or ulcers appreciated. PSYCHIATRIC: Alert and oriented x3. LYMPH NODES: Thyroid midline. No palpable appreciable lymphadenopathy. LABORATORY DATA: He had multiple tests. He has 139 sodium, potassium 3.7, BUN 58, creatinine 4.1. He is having some renal insufficiency. His blood sugar is 283. His blood sugars are high. He has got a calcium of 9.7, magnesium 2.1, total bili is 0.2, AST is 20, ALT is 41, alk phos 81, lactate dehydrogenase is 558. Troponin I is 0.1, which is indeterminate, I will check 2 more. His BNP is quite high at 8120 CHF. Total protein is 6. INR is 1.23. He has got a 12.2 white count, 9.6 hemoglobin, 29.5 hematocrit, with a 185 platelets, a little bit anemic . He had a chest x-ray, which showed mild bilateral hilar pneumonia and CHF. ASSESSMENT AND PLAN: We will put him in the hospital. Consult with Renal, Pulmonary and Cardiology. IV Lasix, IV antibiotics. Renal involvement, insulin coverage. Hopefully he will improve, he is on oxygen, getting physical therapy. Alan Pendleton DO [facility]
[2017-08-12] MEDS: Insulin Detemir 100 units/ml Vial (Levemir) SC SCH (22:05)
--- NOTE | 2017-08-12 23:31 | CARD ---
APPROVED REPORT EKG Measurement Heart [id number] NM [id number] [id number] <Conclusion> Normal sinus rhythm Left ventricular hypertrophy with repolarization abnormality Abnormal ECG
[2017-08-13 05:26] LABS: HEMOGLOBIN 9.1 g/dL (14.0-18.0); MEAN CELL VOLUME 87.4 fl (80.0-105.0); MEAN PLATELET VOLUME 10.6 fl (7.0-11.0); RBC 3.25 10^6/uL (3.5-6.1); RED CELL DISTRIBUTION WIDTH 14.8 % (11.5-14.5); WHITE BLOOD COUNT 9.2 10^3/ul (4.5-11.0)
[2017-08-13 05:39] LABS: ALBUMIN 2.9 g/dL (3.0-4.8); CALCIUM 9.4 mg/dL (8.4-10.5)
[2017-08-13] MEDS ORDERED: Potassium Chloride 20 mEq ER Tab PO STA (06:08)
[2017-08-13] MEDS: Levalbuterol 1.25 MG/3 ML Inhal Soln UD IH SCH ×3 (08:01→20:28)
[2017-08-13] MEDS: Insulin Reg-HIGH-Coverage SC SCH ×4 (09:03→22:40)
[2017-08-13] MEDS: cefTRIAXone 1 gm 1 GM/100 ML BAG IVPB SCH (09:20)
[2017-08-13] MEDS: Tiotropium 18 mcg Cap For Inhalation INH SCH (09:21)
[2017-08-13] MEDS: Azithromycin 500MG/NS 250ml 500 MG/250 ML BAG IVPB SCH (09:21)
--- NOTE | 2017-08-13 09:24 | CP.CCUPN ---
<Erich Mcgarry - Last Filed: 08/13/17 09:24> CCU Subjective - Physician Review Subjective (Free Text): Patient seen and evaluated bedside. No acute issues overnight. Patient states he feels better than yesterday, breathing improved and made a lot of urine. Patient denies chest pain, abdominal pain or any other complaints at this time. 08/13/17 09:19 CCU Objective - Vital Signs / Intake & Output Vital Signs (Last 4 hours): Vital Signs Pulse Resp BP Pulse Ox 08/13/17 06:00 85 27 H 169/102 H 94 L Intake and Output (Last 8hrs): Intake & Output 08/12/17 08/13/17 08/13/17 22:59 06:59 14:59 Intake Total 740 400 Output Total 900 1125 Balance -160 -725 Intake: IV 260 left antecubital 250 left forearm 10 Oral 480 400 Output: Urine 900 1125 Urine, Voided 900 1125 Other: Voiding Method Urinal # Voids Urine, Voided 2 # Bowel Movements 0 - Physical Exam Head: Positive for: Atraumatic, Normocephalic Pupils: Positive for: PERRL Extroacular Muscles: Positive for: EOMI Conjunctiva: Positive for: Normal Mouth: Positive for: Moist Mucous Membranes Neck: Positive for: Normal Range of Motion Respiratory/Chest: Positive for: Rales. Negative for: Respiratory Distress, Accessory Muscle Use Cardiovascular: Positive for: Murmurs (Systolic Murmur), Normal S1, S2. Negative for: Regular Rate and Rhythm Abdomen: Positive for: Normal Bowel Sounds. Negative for: Tenderness, Distention, Peritoneal Signs Upper Extremity: Positive for: Normal Inspection. Negative for: Cyanosis, Edema Lower Extremity: Positive for: Edema (Bilateral lower extremity edema) Neurological: Positive for: GCS=15, CN II-XII Intact, Speech Normal Skin: Positive for: Warm, Dry, Normal Color. Negative for: Rashes Psychiatric: Positive for: Alert, Oriented x 3, Normal Insight, Normal Concentration - Medications Active Medications: Active Medications Generic Name Dose Route Start Last Admin Trade Name Freq PRN Reason Stop Dose Admin Amlodipine Besylate 5 mg 08/12/17 10:45 08/12/17 11:41 Norvasc PO 5 mg DAILY [facility] Administration Aspirin 81 mg 08/12/17 11:25 Aspirin Chewable PO DAILY [facility] Atorvastatin Calcium 40 mg 08/13/17 10:00 Lipitor PO DAILY [facility] Calcitriol 0.25 mcg 08/13/17 10:00 Rocaltrol PO DAILY [facility] Carvedilol 25 mg 08/12/17 10:45 08/12/17 11:40 Coreg PO 25 mg DAILY [facility] Administration Cholecalciferol 2,000 intlu 08/13/17 10:00 Vitamin D PO DAILY [facility] Doxazosin Mesylate 8 mg 08/12/17 10:45 08/12/17 11:41 Cardura PO 8 mg DAILY [facility] Administration Ferrous Gluconate 324 mg 08/12/17 14:00 08/12/17 17:00 Fergon PO 324 mg TID [facility] Administration Furosemide 40 mg 08/12/17 18:00 08/12/17 17:00 Lasix IVP 40 mg BID [facility] Administration Gabapentin 300 mg 08/13/17 10:00 Neurontin PO DAILY [facility] Protocol Hydralazine HCl 100 mg 08/12/17 18:00 08/12/17 17:01 Apresoline PO 100 mg BID [facility] Administration Hydralazine HCl 10 mg 08/12/17 21:19 Apresoline IVP Q6 PRN SBP above 160 and DBP above 80 Ceftriaxone Sodium 1 gm in 100 mls @ 100 mls/hr 08/13/17 10:00 Rocephin 1 Gram Ivpb IVPB DAILY [facility] Protocol Azithromycin 500 mg in 250 mls @ 167 mls/hr 08/12/17 11:00 08/12/17 11:35 Zithromax 500mg In Ns IVPB Not Given DAILY [facility] Protocol Insulin Detemir 15 unit 08/12/17 22:00 08/12/17 22:05 Levemir SC 15 unit HS [facility] Administration Insulin Human Regular 0 units 08/12/17 11:30 08/13/17 09:03 Humulin R High SC Not Given ACHS [facility] Protocol Levalbuterol HCl 1.25 mg 08/13/17 08:00 08/13/17 08:01 Xopenex IH 1.25 mg TIDRESP [facility] Administration Tetrabenazine [ 1 tab 08/13/17 10:00 Xenazine] (Home PO Med) DAILY [facility] Potassium Chloride 20 meq 08/13/17 10:00 K-Dur 20 Meq Er Tab PO DAILY [facility] Tiotropium [place] 18 mcg 03/25/18 10:00 Spiriva INH DAILY [facility] Vitamin B Complex/Vit C/Folic Acid 1 tab 08/13/17 08:00 Nephro-[place]ber[place] PO 0800 [facility] - Patient Studies Lab Studies: Lab Studies 08/13/17 08/13/17 08/13/17 Range/Units 09:01 06:40 05:00 WBC (4.5-11.0) 10^3/ul RBC (3.5-6.1) 10^6/uL Hgb (14.0-18.0) g/dL Hct (42.0-52.0) % MCV (80.0-105.0) fl MCH (25.0-35.0) pg MCHC (31.0-37.0) g/dl RDW (11.5-14.5) % Plt Count (120.0-450.0) 10^3/uL MPV (7.0-11.0) fl Sodium 145 (132-148) mmol/L Potassium 3.5 L (3.6-5.0) mmol/L Chloride 109 H (98-107) mmol/L Carbon Dioxide 30 (21-33) mmol/L Anion Gap 9 L (10-20) BUN 57 H (7-21) mg/dL Creatinine 3.9 H (0.8-1.5) mg/dl Est GFR ( Amer) 19 Est GFR (Non-Af Amer) 16 POC Glucose (mg/dL) 103 (65-110) mg/dL Random Glucose 91 (70-110) mg/dL Calcium 9.4 (8.4-10.5) mg/dL Magnesium 2.2 (1.7-2.2) mg/dL Iron (45-180) ug/dL TIBC (261-462) ug/dL % Saturation (20-55) % Ferritin ng/mL Total Bilirubin 0.3 (0.2-1.3) mg/dL AST 33 (17-59) U/L ALT 40 (7-56) U/L Alkaline Phosphatase 56 (38-126) U/L Troponin I ng/mL Total Protein 5.7 L (5.8-8.3) g/dL Albumin 2.9 L (3.0-4.8) g/dL Globulin 2.8 gm/dL Albumin/Globulin Ratio 1.0 L (1.1-1.8) Procalcitonin (0.19-0.49) NG/ML Urine Color (YELLOW) Urine Appearance (CLEAR) Urine pH (4.7-8.0) Ur Specific [place] (1.005-1.035) Urine Protein (<30 mg/dL) mg/dL Urine Glucose (UA) (NEGATIVE) mg/dL Urine Ketones (NEGATIVE) mg/dL Urine Blood (NEGATIVE) Urine Nitrate (NEGATIVE) Urine Bilirubin (NEGATIVE) Urine Urobilinogen (<1 E.U./dL) E.U./dL Ur Leukocyte Esterase (NEGATIVE) Alexandru/uL Urine RBC (0-2) /hpf Urine WBC (0-6) /hpf Ur Epithelial Cells (0-5) /hpf Amorphous Sediment Urine Bacteria (NEG) Fine Granular Casts (0-2) /hpf Coarse Granular Casts (0-2) /hpf Urine Other Ur Random Creatinine mg/dL U Random Total Protein mg/L Blood Type Confirm 08/13/17 08/12/17 08/12/17 Range/Units 05:00 21:50 19:00 WBC 9.2 D (4.5-11.0) 10^3/ul RBC 3.25 L (3.5-6.1) 10^6/uL Hgb 9.1 L (14.0-18.0) g/dL Hct 28.4 L (42.0-52.0) % MCV 87.4 (80.0-105.0) fl MCH 28.0 (25.0-35.0) pg MCHC 32.0 (31.0-37.0) g/dl RDW 14.8 H (11.5-14.5) % Plt Count 190 (120.0-450.0) 10^3/uL MPV 10.6 (7.0-11.0) fl Sodium (132-148) mmol/L Potassium (3.6-5.0) mmol/L Chloride (98-107) mmol/L Carbon Dioxide (21-33) mmol/L Anion Gap (10-20) BUN (7-21) mg/dL Creatinine (0.8-1.5) mg/dl Est GFR ( Amer) Est GFR (Non-Af Amer) POC Glucose (mg/dL) 146 H (65-110) mg/dL Random Glucose (70-110) mg/dL Calcium (8.4-10.5) mg/dL Magnesium (1.7-2.2) mg/dL Iron (45-180) ug/dL TIBC (261-462) ug/dL % Saturation (20-55) % Ferritin ng/mL Total Bilirubin (0.2-1.3) mg/dL AST (17-59) U/L ALT (7-56) U/L Alkaline Phosphatase (38-126) U/L Troponin I 0.09 ng/mL Total Protein (5.8-8.3) g/dL Albumin (3.0-4.8) g/dL Globulin gm/dL Albumin/Globulin Ratio (1.1-1.8) Procalcitonin (0.19-0.49) NG/ML Urine Color (YELLOW) Urine Appearance (CLEAR) Urine pH (4.7-8.0) Ur Specific [place] (1.005-1.035) Urine Protein (<30 mg/dL) mg/dL Urine Glucose (UA) (NEGATIVE) mg/dL Urine Ketones (NEGATIVE) mg/dL Urine Blood (NEGATIVE) Urine Nitrate (NEGATIVE) Urine Bilirubin (NEGATIVE) Urine Urobilinogen (<1 E.U./dL) E.U./dL Ur Leukocyte Esterase (NEGATIVE) Alexandru/uL Urine RBC (0-2) /hpf Urine WBC (0-6) /hpf Ur Epithelial Cells (0-5) /hpf Amorphous Sediment Urine Bacteria (NEG) Fine Granular Casts (0-2) /hpf Coarse Granular Casts (0-2) /hpf Urine Other Ur Random Creatinine mg/dL U Random Total Protein mg/L Blood Type Confirm 08/12/17 08/12/17 08/12/17 Range/Units 15:30 15:30 15:12 WBC (4.5-11.0) 10^3/ul RBC (3.5-6.1) 10^6/uL Hgb (14.0-18.0) g/dL Hct (42.0-52.0) % MCV (80.0-105.0) fl MCH (25.0-35.0) pg MCHC (31.0-37.0) g/dl RDW (11.5-14.5) % Plt Count (120.0-450.0) 10^3/uL MPV (7.0-11.0) fl Sodium (132-148) mmol/L Potassium (3.6-5.0) mmol/L Chloride (98-107) mmol/L Carbon Dioxide (21-33) mmol/L Anion Gap (10-20) BUN (7-21) mg/dL Creatinine (0.8-1.5) mg/dl Est GFR ( Amer) Est GFR (Non-Af Amer) POC Glucose (mg/dL) 157 H (65-110) mg/dL Random Glucose (70-110) mg/dL Calcium (8.4-10.5) mg/dL Magnesium (1.7-2.2) mg/dL Iron (45-180) ug/dL TIBC (261-462) ug/dL % Saturation (20-55) % Ferritin ng/mL Total Bilirubin (0.2-1.3) mg/dL AST (17-59) U/L ALT (7-56) U/L Alkaline Phosphatase (38-126) U/L Troponin I ng/mL Total Protein (5.8-8.3) g/dL Albumin (3.0-4.8) g/dL Globulin gm/dL Albumin/Globulin Ratio (1.1-1.8) Procalcitonin (0.19-0.49) NG/ML Urine Color Light yellow (YELLOW) Urine Appearance Clear (CLEAR) Urine pH 5.0 (4.7-8.0) Ur Specific [place] 1.010 (1.005-1.035) Urine Protein 100 H (<30 mg/dL) mg/dL Urine Glucose (UA) Negative (NEGATIVE) mg/dL Urine Ketones Negative (NEGATIVE) mg/dL Urine Blood Negative (NEGATIVE) Urine Nitrate Negative (NEGATIVE) Urine Bilirubin Negative (NEGATIVE) Urine Urobilinogen 0.2 (<1 E.U./dL) E.U./dL Ur Leukocyte Esterase Negative (NEGATIVE) Alexandru/uL Urine RBC 0 - 2 (0-2) /hpf Urine WBC 1 - 3 (0-6) /hpf Ur Epithelial Cells None (0-5) /hpf Amorphous Sediment Few Urine Bacteria Mod (NEG) Fine Granular Casts 0 - 2 (0-2) /hpf Coarse Granular Casts Trace H (0-2) /hpf Urine Other Fiber Ur Random Creatinine 47 mg/dL U Random Total Protein 114 mg/L Blood Type Confirm 08/12/17 08/12/17 08/12/17 Range/Units 11:50 11:41 11:30 WBC (4.5-11.0) 10^3/ul RBC (3.5-6.1) 10^6/uL Hgb (14.0-18.0) g/dL Hct (42.0-52.0) % MCV (80.0-105.0) fl MCH (25.0-35.0) pg MCHC (31.0-37.0) g/dl RDW (11.5-14.5) % Plt Count (120.0-450.0) 10^3/uL MPV (7.0-11.0) fl Sodium (132-148) mmol/L Potassium (3.6-5.0) mmol/L Chloride (98-107) mmol/L Carbon Dioxide (21-33) mmol/L Anion Gap (10-20) BUN (7-21) mg/dL Creatinine (0.8-1.5) mg/dl Est GFR ( Amer) Est GFR (Non-Af Amer) POC Glucose (mg/dL) (65-110) mg/dL Random Glucose (70-110) mg/dL Calcium (8.4-10.5) mg/dL Magnesium (1.7-2.2) mg/dL Iron 32 L (45-180) ug/dL TIBC 185 L (261-462) ug/dL % Saturation 17 L (20-55) % Ferritin 215.0 ng/mL Total Bilirubin (0.2-1.3) mg/dL AST (17-59) U/L ALT (7-56) U/L Alkaline Phosphatase (38-126) U/L Troponin I ng/mL Total Protein (5.8-8.3) g/dL Albumin (3.0-4.8) g/dL Globulin gm/dL Albumin/Globulin Ratio (1.1-1.8) Procalcitonin 0.44 (0.19-0.49) NG/ML Urine Color (YELLOW) Urine Appearance (CLEAR) Urine pH (4.7-8.0) Ur Specific [place] (1.005-1.035) Urine Protein (<30 mg/dL) mg/dL Urine Glucose (UA) (NEGATIVE) mg/dL Urine Ketones (NEGATIVE) mg/dL Urine Blood (NEGATIVE) Urine Nitrate (NEGATIVE) Urine Bilirubin (NEGATIVE) Urine Urobilinogen (<1 E.U./dL) E.U./dL Ur Leukocyte Esterase (NEGATIVE) Alexandru/uL Urine RBC (0-2) /hpf Urine WBC (0-6) /hpf Ur Epithelial Cells (0-5) /hpf Amorphous Sediment Urine Bacteria (NEG) Fine Granular Casts (0-2) /hpf Coarse Granular Casts (0-2) /hpf Urine Other Ur Random Creatinine mg/dL U Random Total Protein mg/L Blood Type Confirm 08/12/17 08/12/17 08/12/17 Range/Units 11:27 11:05 11:05 WBC (4.5-11.0) 10^3/ul RBC (3.5-6.1) 10^6/uL Hgb (14.0-18.0) g/dL Hct (42.0-52.0) % MCV (80.0-105.0) fl MCH (25.0-35.0) pg MCHC (31.0-37.0) g/dl RDW (11.5-14.5) % Plt Count (120.0-450.0) 10^3/uL MPV (7.0-11.0) fl Sodium (132-148) mmol/L Potassium (3.6-5.0) mmol/L Chloride (98-107) mmol/L Carbon Dioxide (21-33) mmol/L Anion Gap (10-20) BUN (7-21) mg/dL Creatinine (0.8-1.5) mg/dl Est GFR ( Amer) Est GFR (Non-Af Amer) POC Glucose (mg/dL) 213 H (65-110) mg/dL Random Glucose (70-110) mg/dL Calcium (8.4-10.5) mg/dL Magnesium (1.7-2.2) mg/dL Iron (45-180) ug/dL TIBC (261-462) ug/dL % Saturation (20-55) % Ferritin ng/mL Total Bilirubin (0.2-1.3) mg/dL AST (17-59) U/L ALT (7-56) U/L Alkaline Phosphatase (38-126) U/L Troponin I 0.09 ng/mL Total Protein (5.8-8.3) g/dL Albumin (3.0-4.8) g/dL Globulin gm/dL Albumin/Globulin Ratio (1.1-1.8) Procalcitonin (0.19-0.49) NG/ML Urine Color (YELLOW) Urine Appearance (CLEAR) Urine pH (4.7-8.0) Ur Specific [place] (1.005-1.035) Urine Protein (<30 mg/dL) mg/dL Urine Glucose (UA) (NEGATIVE) mg/dL Urine Ketones (NEGATIVE) mg/dL Urine Blood (NEGATIVE) Urine Nitrate (NEGATIVE) Urine Bilirubin (NEGATIVE) Urine Urobilinogen (<1 E.U./dL) E.U./dL Ur Leukocyte Esterase (NEGATIVE) Alexandru/uL Urine RBC (0-2) /hpf Urine WBC (0-6) /hpf Ur Epithelial Cells (0-5) /hpf Amorphous Sediment Urine Bacteria (NEG) Fine Granular Casts (0-2) /hpf Coarse Granular Casts (0-2) /hpf Urine Other Ur Random Creatinine mg/dL U Random Total Protein mg/L Blood Type Confirm O POSITIVE Laboratory Results - last 24 hr 08/12/17 08/12/17 08/12/17 11:05 11:05 11:27 WBC RBC Hgb Hct MCV MCH MCHC RDW Plt Count MPV Sodium Potassium Chloride Carbon Dioxide Anion Gap BUN Creatinine Est GFR ( Amer) Est GFR (Non-Af Amer) POC Glucose (mg/dL) 213 H Random Glucose Calcium Magnesium Iron TIBC % Saturation Ferritin Total Bilirubin AST ALT Alkaline Phosphatase Troponin I 0.09 Total Protein Albumin Globulin Albumin/Globulin Ratio Procalcitonin Urine Color Urine Appearance Urine pH Ur Specific [place] Urine Protein Urine Glucose (UA) Urine Ketones Urine Blood Urine Nitrate Urine Bilirubin Urine Urobilinogen Ur Leukocyte Esterase Urine RBC Urine WBC Ur Epithelial Cells Amorphous Sediment Urine Bacteria Fine Granular Casts Coarse Granular Casts Urine Other Ur Random Creatinine U Random Total Protein Blood Type Confirm O POSITIVE 08/12/17 08/12/17 08/12/17 11:30 11:41 11:50 WBC RBC Hgb Hct MCV MCH MCHC RDW Plt Count MPV Sodium Potassium Chloride Carbon Dioxide Anion Gap BUN Creatinine Est GFR ( Amer) Est GFR (Non-Af Amer) POC Glucose (mg/dL) Random Glucose Calcium Magnesium Iron 32 L TIBC 185 L % Saturation 17 L Ferritin 215.0 Total Bilirubin AST ALT Alkaline Phosphatase Troponin I Total Protein Albumin Globulin Albumin/Globulin Ratio Procalcitonin 0.44 Urine Color Urine Appearance Urine pH Ur Specific [place] Urine Protein Urine Glucose (UA) Urine Ketones Urine Blood Urine Nitrate Urine Bilirubin Urine Urobilinogen Ur Leukocyte Esterase Urine RBC Urine WBC Ur Epithelial Cells Amorphous Sediment Urine Bacteria Fine Granular Casts Coarse Granular Casts Urine Other Ur Random Creatinine U Random Total Protein Blood Type Confirm 08/12/17 08/12/17 08/12/17 15:12 15:30 15:30 WBC RBC Hgb Hct MCV MCH MCHC RDW Plt Count MPV Sodium Potassium Chloride Carbon Dioxide Anion Gap BUN Creatinine Est GFR ( Amer) Est GFR (Non-Af Amer) POC Glucose (mg/dL) 157 H Random Glucose Calcium Magnesium Iron TIBC % Saturation Ferritin Total Bilirubin AST ALT Alkaline Phosphatase Troponin I Total Protein Albumin Globulin Albumin/Globulin Ratio Procalcitonin Urine Color Light yellow Urine Appearance Clear Urine pH 5.0 Ur Specific [place] 1.010 Urine Protein 100 H Urine Glucose (UA) Negative Urine Ketones Negative Urine Blood Negative Urine Nitrate Negative Urine Bilirubin Negative Urine Urobilinogen 0.2 Ur Leukocyte Esterase Negative Urine RBC 0 - 2 Urine WBC 1 - 3 Ur Epithelial Cells None Amorphous Sediment Few Urine Bacteria Mod Fine Granular Casts 0 - 2 Coarse Granular Casts Trace H Urine Other Fiber Ur Random Creatinine 47 U Random Total Protein 114 Blood Type Confirm 08/12/17 08/12/17 08/13/17 19:00 21:50 05:00 WBC 9.2 D RBC 3.25 L Hgb 9.1 L Hct 28.4 L MCV 87.4 MCH 28.0 MCHC 32.0 RDW 14.8 H Plt Count 190 MPV 10.6 Sodium Potassium Chloride Carbon Dioxide Anion Gap BUN Creatinine Est GFR ( Amer) Est GFR (Non-Af Amer) POC Glucose (mg/dL) 146 H Random Glucose Calcium Magnesium Iron TIBC % Saturation Ferritin Total Bilirubin AST ALT Alkaline Phosphatase Troponin I 0.09 Total Protein Albumin Globulin Albumin/Globulin Ratio Procalcitonin Urine Color Urine Appearance Urine pH Ur Specific [place] Urine Protein Urine Glucose (UA) Urine Ketones Urine Blood Urine Nitrate Urine Bilirubin Urine Urobilinogen Ur Leukocyte Esterase Urine RBC Urine WBC Ur Epithelial Cells Amorphous Sediment Urine Bacteria Fine Granular Casts Coarse Granular Casts Urine Other Ur Random Creatinine U Random Total Protein Blood Type Confirm 08/13/17 08/13/17 08/13/17 05:00 06:40 09:01 WBC RBC Hgb Hct MCV MCH MCHC RDW Plt Count MPV Sodium 145 Potassium 3.5 L Chloride 109 H Carbon Dioxide 30 Anion Gap 9 L BUN 57 H Creatinine 3.9 H Est GFR ( Amer) 19 Est GFR (Non-Af Amer) 16 POC Glucose (mg/dL) 103 Random Glucose 91 Calcium 9.4 Magnesium 2.2 Iron TIBC % Saturation Ferritin Total Bilirubin 0.3 AST 33 ALT 40 Alkaline Phosphatase 56 Troponin I Total Protein 5.7 L Albumin 2.9 L Globulin 2.8 Albumin/Globulin Ratio 1.0 L Procalcitonin Urine Color Urine Appearance Urine pH Ur Specific [place] Urine Protein Urine Glucose (UA) Urine Ketones Urine Blood Urine Nitrate Urine Bilirubin Urine Urobilinogen Ur Leukocyte Esterase Urine RBC Urine WBC Ur Epithelial Cells Amorphous Sediment Urine Bacteria Fine Granular Casts Coarse Granular Casts Urine Other Ur Random Creatinine U Random Total Protein Blood Type Confirm Fingerstick Blood Sugar Results: 103 Review of Systems - Cardiovascular Cardiovascular: absent: Chest Pain, Dyspnea - Respiratory Respiratory: Dyspnea on Exertion. absent: Cough, Dyspnea, Wheezing - Gastrointestinal Gastrointestinal: absent: Abdominal Pain, Nausea, Vomiting - Neurological Neurological: absent: Dizziness, Headaches Critical Care Progress Note - Nutrition Nutrition: Nutrition Category Date Time Status Renal Diet [DIET] Diets 08/12/17 Dinner Ordered Assessment/Plan - Assessment and Plan (Free Text) Assessment: 57yo male with PMhx of CKD stage III, HTN, CVA with no residual weakness, [place] with weakness and SOB. Pt with volume overload and possible consolidation on CXR. Plan: CHF CKD HTN PNA Plan: - supp o2 as needed - pcultures pending - procal low - abx for PNA - IV diuresis - ECHO pending read - cardiology consult, follow recs - Renal consult, follow recs - BP control - FS control - GI ppx - DVT ppx - CCU monitoring <Tico Patel - Last Filed: 08/13/17 10:41> CCU Objective - Vital Signs / Intake & Output Vital Signs (Last 4 hours): Vital Signs Pulse BP 03/25/18 09:19 85 176/104 H 08/13/17 09:17 176/104 H 08/13/17 09:16 85 176/104 H 08/13/17 09:13 84 176/104 H Intake and Output (Last 8hrs): Intake & Output 08/12/17 08/13/17 08/13/17 22:59 06:59 14:59 Intake Total 740 400 Output Total 900 1125 Balance -160 -725 Intake: IV 260 left antecubital 250 left forearm 10 Oral 480 400 Output: Urine 900 1125 Urine, Voided 900 1125 Other: Voiding Method Urinal # Voids Urine, Voided 2 # Bowel Movements 0 - Medications Active Medications: Active Medications Generic Name Dose Route Start Last Admin Trade Name Freq PRN Reason Stop Dose Admin Amlodipine Besylate 5 mg 08/12/17 10:45 08/13/17 09:19 Norvasc PO 5 mg DAILY [facility] Administration Aspirin 81 mg 08/12/17 11:25 08/13/17 09:15 Aspirin Chewable PO 81 mg DAILY [facility] Administration Atorvastatin Calcium 40 mg 08/13/17 10:00 Lipitor PO DAILY [facility] Calcitriol 0.25 mcg 08/13/17 10:00 08/13/17 09:34 Rocaltrol PO 0.25 mcg DAILY [facility] Administration Carvedilol 25 mg 08/12/17 10:45 08/13/17 09:16 Coreg PO 25 mg DAILY [facility] Administration Cholecalciferol 2,000 intlu 08/13/17 10:00 Vitamin D PO DAILY [facility] Doxazosin Mesylate 8 mg 08/12/17 10:45 08/13/17 09:15 Cardura PO 8 mg DAILY [facility] Administration Ferrous Gluconate 324 mg 08/12/17 14:00 08/13/17 09:34 Fergon PO 324 mg TID [facility] Administration Furosemide 40 mg 08/12/17 18:00 08/13/17 09:17 Lasix IVP 40 mg BID [facility] Administration Gabapentin 300 mg 08/13/17 10:00 08/13/17 09:19 Neurontin PO 300 mg DAILY [facility] Administration Protocol Hydralazine HCl 100 mg 08/12/17 18:00 08/13/17 09:13 Apresoline PO 100 mg BID [facility] Administration Hydralazine HCl 10 mg 08/12/17 21:19 Apresoline IVP Q6 PRN SBP above 160 and DBP above 80 Ceftriaxone Sodium 1 gm in 100 mls @ 100 mls/hr 08/13/17 10:00 08/13/17 09:20 Rocephin 1 Gram Ivpb IVPB 100 mls/hr DAILY [facility] Administration Protocol Azithromycin 500 mg in 250 mls @ 167 mls/hr 08/12/17 11:00 08/13/17 09:21 Zithromax 500mg In Ns IVPB 167 mls/hr DAILY [facility] Administration Protocol Insulin Detemir 15 unit 08/12/17 22:00 08/12/17 22:05 Levemir SC 15 unit HS [facility] Administration Insulin Human Regular 0 units 08/12/17 11:30 08/13/17 09:03 Humulin R High SC Not Given ACHS [facility] Protocol Levalbuterol HCl 1.25 mg 08/13/17 08:00 08/13/17 08:01 Xopenex IH 1.25 mg TIDRESP [facility] Administration Tetrabenazine [ 1 tab 08/13/17 10:00 Xenazine] (Home PO Med) DAILY [facility] Potassium Chloride 20 meq 08/13/17 10:00 K-Dur 20 Meq Er Tab PO DAILY [facility] Tiotropium [place] 18 mcg 08/13/17 10:00 08/13/17 09:21 Spiriva INH 18 mcg DAILY [facility] Administration Vitamin B Complex/Vit C/Folic Acid 1 tab 08/13/17 08:00 Nephro-[place] PO 0800 [facility] - Patient Studies Lab Studies: Lab Studies 08/13/17 08/13/17 08/13/17 Range/Units 09:01 06:40 05:00 WBC (4.5-11.0) 10^3/ul RBC (3.5-6.1) 10^6/uL Hgb (14.0-18.0) g/dL Hct (42.0-52.0) % MCV (80.0-105.0) fl MCH (25.0-35.0) pg MCHC (31.0-37.0) g/dl RDW (11.5-14.5) % Plt Count (120.0-450.0) 10^3/uL MPV (7.0-11.0) fl Sodium 145 (132-148) mmol/L Potassium 3.5 L (3.6-5.0) mmol/L Chloride 109 H (98-107) mmol/L Carbon Dioxide 30 (21-33) mmol/L Anion Gap 9 L (10-20) BUN 57 H (7-21) mg/dL Creatinine 3.9 H (0.8-1.5) mg/dl Est GFR ( Amer) 19 Est GFR (Non-Af Amer) 16 POC Glucose (mg/dL) 103 (65-110) mg/dL Random Glucose 91 (70-110) mg/dL Calcium 9.4 (8.4-10.5) mg/dL Magnesium 2.2 (1.7-2.2) mg/dL Iron (45-180) ug/dL TIBC (261-462) ug/dL % Saturation (20-55) % Ferritin ng/mL Total Bilirubin 0.3 (0.2-1.3) mg/dL AST 33 (17-59) U/L ALT 40 (7-56) U/L Alkaline Phosphatase 56 (38-126) U/L Troponin I ng/mL Total Protein 5.7 L (5.8-8.3) g/dL Albumin 2.9 L (3.0-4.8) g/dL Globulin 2.8 gm/dL Albumin/Globulin Ratio 1.0 L (1.1-1.8) Procalcitonin (0.19-0.49) NG/ML Urine Color (YELLOW) Urine Appearance (CLEAR) Urine pH (4.7-8.0) Ur Specific [place] (1.005-1.035) Urine Protein (<30 mg/dL) mg/dL Urine Glucose (UA) (NEGATIVE) mg/dL Urine Ketones (NEGATIVE) mg/dL Urine Blood (NEGATIVE) Urine Nitrate (NEGATIVE) Urine Bilirubin (NEGATIVE) Urine Urobilinogen (<1 E.U./dL) E.U./dL Ur Leukocyte Esterase (NEGATIVE) Alexandru/uL Urine RBC (0-2) /hpf Urine WBC (0-6) /hpf Ur Epithelial Cells (0-5) /hpf Amorphous Sediment Urine Bacteria (NEG) Fine Granular Casts (0-2) /hpf Coarse Granular Casts (0-2) /hpf Urine Other Ur Random Creatinine mg/dL U Random Total Protein mg/L Blood Type Confirm 08/13/17 08/12/17 08/12/17 Range/Units 05:00 21:50 19:00 WBC 9.2 D (4.5-11.0) 10^3/ul RBC 3.25 L (3.5-6.1) 10^6/uL Hgb 9.1 L (14.0-18.0) g/dL Hct 28.4 L (42.0-52.0) % MCV 87.4 (80.0-105.0) fl MCH 28.0 (25.0-35.0) pg MCHC 32.0 (31.0-37.0) g/dl RDW 14.8 H (11.5-14.5) % Plt Count 190 (120.0-450.0) 10^3/uL MPV 10.6 (7.0-11.0) fl Sodium (132-148) mmol/L Potassium (3.6-5.0) mmol/L Chloride (98-107) mmol/L Carbon Dioxide (21-33) mmol/L Anion Gap (10-20) BUN (7-21) mg/dL Creatinine (0.8-1.5) mg/dl Est GFR ( Amer) Est GFR (Non-Af Amer) POC Glucose (mg/dL) 146 H (65-110) mg/dL Random Glucose (70-110) mg/dL Calcium (8.4-10.5) mg/dL Magnesium (1.7-2.2) mg/dL Iron (45-180) ug/dL TIBC (261-462) ug/dL % Saturation (20-55) % Ferritin ng/mL Total Bilirubin (0.2-1.3) mg/dL AST (17-59) U/L ALT (7-56) U/L Alkaline Phosphatase (38-126) U/L Troponin I 0.09 ng/mL Total Protein (5.8-8.3) g/dL Albumin (3.0-4.8) g/dL Globulin gm/dL Albumin/Globulin Ratio (1.1-1.8) Procalcitonin (0.19-0.49) NG/ML Urine Color (YELLOW) Urine Appearance (CLEAR) Urine pH (4.7-8.0) Ur Specific [place] (1.005-1.035) Urine Protein (<30 mg/dL) mg/dL Urine Glucose (UA) (NEGATIVE) mg/dL Urine Ketones (NEGATIVE) mg/dL Urine Blood (NEGATIVE) Urine Nitrate (NEGATIVE) Urine Bilirubin (NEGATIVE) Urine Urobilinogen (<1 E.U./dL) E.U./dL Ur Leukocyte Esterase (NEGATIVE) Alexandru/uL Urine RBC (0-2) /hpf Urine WBC (0-6) /hpf Ur Epithelial Cells (0-5) /hpf Amorphous Sediment Urine Bacteria (NEG) Fine Granular Casts (0-2) /hpf Coarse Granular Casts (0-2) /hpf Urine Other Ur Random Creatinine mg/dL U Random Total Protein mg/L Blood Type Confirm 08/12/17 08/12/17 08/12/17 Range/Units 15:30 15:30 15:12 WBC (4.5-11.0) 10^3/ul RBC (3.5-6.1) 10^6/uL Hgb (14.0-18.0) g/dL Hct (42.0-52.0) % MCV (80.0-105.0) fl MCH (25.0-35.0) pg MCHC (31.0-37.0) g/dl RDW (11.5-14.5) % Plt Count (120.0-450.0) 10^3/uL MPV (7.0-11.0) fl Sodium (132-148) mmol/L Potassium (3.6-5.0) mmol/L Chloride (98-107) mmol/L Carbon Dioxide (21-33) mmol/L Anion Gap (10-20) BUN (7-21) mg/dL Creatinine (0.8-1.5) mg/dl Est GFR ( Amer) Est GFR (Non-Af Amer) POC Glucose (mg/dL) 157 H (65-110) mg/dL Random Glucose (70-110) mg/dL Calcium (8.4-10.5) mg/dL Magnesium (1.7-2.2) mg/dL Iron (45-180) ug/dL TIBC (261-462) ug/dL % Saturation (20-55) % Ferritin ng/mL Total Bilirubin (0.2-1.3) mg/dL AST (17-59) U/L ALT (7-56) U/L Alkaline Phosphatase (38-126) U/L Troponin I ng/mL Total Protein (5.8-8.3) g/dL Albumin (3.0-4.8) g/dL Globulin gm/dL Albumin/Globulin Ratio (1.1-1.8) Procalcitonin (0.19-0.49) NG/ML Urine Color Light yellow (YELLOW) Urine Appearance Clear (CLEAR) Urine pH 5.0 (4.7-8.0) Ur Specific [place] 1.010 (1.005-1.035) Urine Protein 100 H (<30 mg/dL) mg/dL Urine Glucose (UA) Negative (NEGATIVE) mg/dL Urine Ketones Negative (NEGATIVE) mg/dL Urine Blood Negative (NEGATIVE) Urine Nitrate Negative (NEGATIVE) Urine Bilirubin Negative (NEGATIVE) Urine Urobilinogen 0.2 (<1 E.U./dL) E.U./dL Ur Leukocyte Esterase Negative (NEGATIVE) Alexandru/uL Urine RBC 0 - 2 (0-2) /hpf Urine WBC 1 - 3 (0-6) /hpf Ur Epithelial Cells None (0-5) /hpf Amorphous Sediment Few Urine Bacteria Mod (NEG) Fine Granular Casts 0 - 2 (0-2) /hpf Coarse Granular Casts Trace H (0-2) /hpf Urine Other Fiber Ur Random Creatinine 47 mg/dL U Random Total Protein 114 mg/L Blood Type Confirm 08/12/17 08/12/17 08/12/17 Range/Units 11:50 11:41 11:30 WBC (4.5-11.0) 10^3/ul RBC (3.5-6.1) 10^6/uL Hgb (14.0-18.0) g/dL Hct (42.0-52.0) % MCV (80.0-105.0) fl MCH (25.0-35.0) pg MCHC (31.0-37.0) g/dl RDW (11.5-14.5) % Plt Count (120.0-450.0) 10^3/uL MPV (7.0-11.0) fl Sodium (132-148) mmol/L Potassium (3.6-5.0) mmol/L Chloride (98-107) mmol/L Carbon Dioxide (21-33) mmol/L Anion Gap (10-20) BUN (7-21) mg/dL Creatinine (0.8-1.5) mg/dl Est GFR ( Amer) Est GFR (Non-Af Amer) POC Glucose (mg/dL) (65-110) mg/dL Random Glucose (70-110) mg/dL Calcium (8.4-10.5) mg/dL Magnesium (1.7-2.2) mg/dL Iron 32 L (45-180) ug/dL TIBC 185 L (261-462) ug/dL % Saturation 17 L (20-55) % Ferritin 215.0 ng/mL Total Bilirubin (0.2-1.3) mg/dL AST (17-59) U/L ALT (7-56) U/L Alkaline Phosphatase (38-126) U/L Troponin I ng/mL Total Protein (5.8-8.3) g/dL Albumin (3.0-4.8) g/dL Globulin gm/dL Albumin/Globulin Ratio (1.1-1.8) Procalcitonin 0.44 (0.19-0.49) NG/ML Urine Color (YELLOW) Urine Appearance (CLEAR) Urine pH (4.7-8.0) Ur Specific [place] (1.005-1.035) Urine Protein (<30 mg/dL) mg/dL Urine Glucose (UA) (NEGATIVE) mg/dL Urine Ketones (NEGATIVE) mg/dL Urine Blood (NEGATIVE) Urine Nitrate (NEGATIVE) Urine Bilirubin (NEGATIVE) Urine Urobilinogen (<1 E.U./dL) E.U./dL Ur Leukocyte Esterase (NEGATIVE) Alexandru/uL Urine RBC (0-2) /hpf Urine WBC (0-6) /hpf Ur Epithelial Cells (0-5) /hpf Amorphous Sediment Urine Bacteria (NEG) Fine Granular Casts (0-2) /hpf Coarse Granular Casts (0-2) /hpf Urine Other Ur Random Creatinine mg/dL U Random Total Protein mg/L Blood Type Confirm 08/12/17 08/12/17 08/12/17 Range/Units 11:27 11:05 11:05 WBC (4.5-11.0) 10^3/ul RBC (3.5-6.1) 10^6/uL Hgb (14.0-18.0) g/dL Hct (42.0-52.0) % MCV (80.0-105.0) fl MCH (25.0-35.0) pg MCHC (31.0-37.0) g/dl RDW (11.5-14.5) % Plt Count (120.0-450.0) 10^3/uL MPV (7.0-11.0) fl Sodium (132-148) mmol/L Potassium (3.6-5.0) mmol/L Chloride (98-107) mmol/L Carbon Dioxide (21-33) mmol/L Anion Gap (10-20) BUN (7-21) mg/dL Creatinine (0.8-1.5) mg/dl Est GFR ( Amer) Est GFR (Non-Af Amer) POC Glucose (mg/dL) 213 H (65-110) mg/dL Random Glucose (70-110) mg/dL Calcium (8.4-10.5) mg/dL Magnesium (1.7-2.2) mg/dL Iron (45-180) ug/dL TIBC (261-462) ug/dL % Saturation (20-55) % Ferritin ng/mL Total Bilirubin (0.2-1.3) mg/dL AST (17-59) U/L ALT (7-56) U/L Alkaline Phosphatase (38-126) U/L Troponin I 0.09 ng/mL Total Protein (5.8-8.3) g/dL Albumin (3.0-4.8) g/dL Globulin gm/dL Albumin/Globulin Ratio (1.1-1.8) Procalcitonin (0.19-0.49) NG/ML Urine Color (YELLOW) Urine Appearance (CLEAR) Urine pH (4.7-8.0) Ur Specific [place] (1.005-1.035) Urine Protein (<30 mg/dL) mg/dL Urine Glucose (UA) (NEGATIVE) mg/dL Urine Ketones (NEGATIVE) mg/dL Urine Blood (NEGATIVE) Urine Nitrate (NEGATIVE) Urine Bilirubin (NEGATIVE) Urine Urobilinogen (<1 E.U./dL) E.U./dL Ur Leukocyte Esterase (NEGATIVE) Alexandru/uL Urine RBC (0-2) /hpf Urine WBC (0-6) /hpf Ur Epithelial Cells (0-5) /hpf Amorphous Sediment Urine Bacteria (NEG) Fine Granular Casts (0-2) /hpf Coarse Granular Casts (0-2) /hpf Urine Other Ur Random Creatinine mg/dL U Random Total Protein mg/L Blood Type Confirm O POSITIVE Laboratory Results - last 24 hr 08/12/17 08/12/17 08/12/17 11:05 11:05 11:27 WBC RBC Hgb Hct MCV MCH MCHC RDW Plt Count MPV Sodium Potassium Chloride Carbon Dioxide Anion Gap BUN Creatinine Est GFR ( Amer) Est GFR (Non-Af Amer) POC Glucose (mg/dL) 213 H Random Glucose Calcium Magnesium Iron TIBC % Saturation Ferritin Total Bilirubin AST ALT Alkaline Phosphatase Troponin I 0.09 Total Protein Albumin Globulin Albumin/Globulin Ratio Procalcitonin Urine Color Urine Appearance Urine pH Ur Specific [place] Urine Protein Urine Glucose (UA) Urine Ketones Urine Blood Urine Nitrate Urine Bilirubin Urine Urobilinogen Ur Leukocyte Esterase Urine RBC Urine WBC Ur Epithelial Cells Amorphous Sediment Urine Bacteria Fine Granular Casts Coarse Granular Casts Urine Other Ur Random Creatinine U Random Total Protein Blood Type Confirm O POSITIVE 08/12/17 08/12/17 08/12/17 11:30 11:41 11:50 WBC RBC Hgb Hct MCV MCH MCHC RDW Plt Count MPV Sodium Potassium Chloride Carbon Dioxide Anion Gap BUN Creatinine Est GFR ( Amer) Est GFR (Non-Af Amer) POC Glucose (mg/dL) Random Glucose Calcium Magnesium Iron 32 L TIBC 185 L % Saturation 17 L Ferritin 215.0 Total Bilirubin AST ALT Alkaline Phosphatase Troponin I Total Protein Albumin Globulin Albumin/Globulin Ratio Procalcitonin 0.44 Urine Color Urine Appearance Urine pH Ur Specific [place] Urine Protein Urine Glucose (UA) Urine Ketones Urine Blood Urine Nitrate Urine Bilirubin Urine Urobilinogen Ur Leukocyte Esterase Urine RBC Urine WBC Ur Epithelial Cells Amorphous Sediment Urine Bacteria Fine Granular Casts Coarse Granular Casts Urine Other Ur Random Creatinine U Random Total Protein Blood Type Confirm 08/12/17 08/12/17 08/12/17 15:12 15:30 15:30 WBC RBC Hgb Hct MCV MCH MCHC RDW Plt Count MPV Sodium Potassium Chloride Carbon Dioxide Anion Gap BUN Creatinine Est GFR ( Amer) Est GFR (Non-Af Amer) POC Glucose (mg/dL) 157 H Random Glucose Calcium Magnesium Iron TIBC % Saturation Ferritin Total Bilirubin AST ALT Alkaline Phosphatase Troponin I Total Protein Albumin Globulin Albumin/Globulin Ratio Procalcitonin Urine Color Light yellow Urine Appearance Clear Urine pH 5.0 Ur Specific [place] 1.010 Urine Protein 100 H Urine Glucose (UA) Negative Urine Ketones Negative Urine Blood Negative Urine Nitrate Negative Urine Bilirubin Negative Urine Urobilinogen 0.2 Ur Leukocyte Esterase Negative Urine RBC 0 - 2 Urine WBC 1 - 3 Ur Epithelial Cells None Amorphous Sediment Few Urine Bacteria Mod Fine Granular Casts 0 - 2 Coarse Granular Casts Trace H Urine Other Fiber Ur Random Creatinine 47 U Random Total Protein 114 Blood Type Confirm 08/12/17 08/12/17 08/13/17 19:00 21:50 05:00 WBC 9.2 D RBC 3.25 L Hgb 9.1 L Hct 28.4 L MCV 87.4 MCH 28.0 MCHC 32.0 RDW 14.8 H Plt Count 190 MPV 10.6 Sodium Potassium Chloride Carbon Dioxide Anion Gap BUN Creatinine Est GFR ( Amer) Est GFR (Non-Af Amer) POC Glucose (mg/dL) 146 H Random Glucose Calcium Magnesium Iron TIBC % Saturation Ferritin Total Bilirubin AST ALT Alkaline Phosphatase Troponin I 0.09 Total Protein Albumin Globulin Albumin/Globulin Ratio Procalcitonin Urine Color Urine Appearance Urine pH Ur Specific [place] Urine Protein Urine Glucose (UA) Urine Ketones Urine Blood Urine Nitrate Urine Bilirubin Urine Urobilinogen Ur Leukocyte Esterase Urine RBC Urine WBC Ur Epithelial Cells Amorphous Sediment Urine Bacteria Fine Granular Casts Coarse Granular Casts Urine Other Ur Random Creatinine U Random Total Protein Blood Type Confirm 08/13/17 08/13/17 08/13/17 05:00 06:40 09:01 WBC RBC Hgb Hct MCV MCH MCHC RDW Plt Count MPV Sodium 145 Potassium 3.5 L Chloride 109 H Carbon Dioxide 30 Anion Gap 9 L BUN 57 H Creatinine 3.9 H Est GFR ( Amer) 19 Est GFR (Non-Af Amer) 16 POC Glucose (mg/dL) 103 Random Glucose 91 Calcium 9.4 Magnesium 2.2 Iron TIBC % Saturation Ferritin Total Bilirubin 0.3 AST 33 ALT 40 Alkaline Phosphatase 56 Troponin I Total Protein 5.7 L Albumin 2.9 L Globulin 2.8 Albumin/Globulin Ratio 1.0 L Procalcitonin Urine Color Urine Appearance Urine pH Ur Specific [place] Urine Protein Urine Glucose (UA) Urine Ketones Urine Blood Urine Nitrate Urine Bilirubin Urine Urobilinogen Ur Leukocyte Esterase Urine RBC Urine WBC Ur Epithelial Cells Amorphous Sediment Urine Bacteria Fine Granular Casts Coarse Granular Casts Urine Other Ur Random Creatinine U Random Total Protein Blood Type Confirm Critical Care Progress Note - Nutrition Nutrition: Nutrition Category Date Time Status Renal Diet [DIET] Diets 08/12/17 Dinner Ordered Assessment/Plan - Assessment and Plan (Free Text) Plan: Patient seen and examined with resident on rounds, agree with note with following additions/exceptions: Patient is 57yo male with PMhx of CKD stage III, HTN, CVA with no residual weakness, presented after cruise ship with weakness and SOB. Pt with volume overload and possible consolidation on CXR ECHO done read pending Cardiology, renal following. On IV diuresis, with adequate output Volume Overload CHF CKD HTN PNA Recommend: - supp o2 as needed - panculture, UCx, BCx, Procal - CAP coverage, Azithro, Rocephin - IV diuresis - ECHO read - cardiology follow up - Renal follow up - BP control - FS control - GI ppx - DVT ppx - monitor in CCU
--- NOTE | 2017-08-13 10:47 | CP.PCM.PN ---
Subjective - Date & Time of Evaluation Date of Evaluation: 08/13/17 Time of Evaluation: 10:45 - Subjective Subjective: Nephrology Consultation Note: Assessment: stable Acute dyspnea with fluid overload and pneumonia ? CHF ? COPD Acute Kidney Injury (N17.9) Diabetic chronic Kidney Disease (E11.22) Hypertensive Chronic Kidney Disease (I12.9) Chronic Kidney Disease (N18.4) Stage 4 with ? mg proteinuria (R80.9) likely due to DM/HTN Anemia (D64.9), Hyperphosphatemia (E83.39), Secondary Hyperparathyroidism (E21.1 ), HTN (I12.9) Plan No acute need for renal replacement therapy at this time. Hypertension control with meds as ordered. Patient not on ACEI/ARB due to AGUSTINA. Increased coreg and norvasc Monitor Input/Output, daily weights and renal function with basic metabolic panel We will add iron supplements and multivitamin Continue home dose of calcitriol Agree with IV Lasix. will consider ROSA once BP well controlled K supplementation Dose meds/antibiotics for reduced GFR. Avoid fleets enema/magnesium based laxatives. Avoid nephrotoxins/NSAIDs/ iodinated contrast (unless needed emergently) Glycemic control Further work up/management as per primary team Thanks for allowing me to participate in care of your patient. Will follow patient with you. Please call if any Qs Dr Augustin Alcantara Office: [phone] HPI: Pt is a 57 male with hx of diabetes Mellitus ( 18 years) With Retinopathy, hypertension (years), CKD 4 with baseLine serum creatinine in mid 3 range, Patient aware about kidney disease for the last 10 years, follows up in [place], was on a cruise for last 7 days presented with complaints of Shortness of breath for the last 3 days with associated cough phlegm and leg swelling. pt also noted to have low-grade temperature on the cruise. He was not able to follow low salt diet while on the cruise Denies OTC/herbal meds or NSAIDs No recent iodinated contrast exposure. No obvious episodes of low BP. ROS: Cardiovascular: No chest pain. Pulmonary:improved shortness of breath Gastrointestinal: denies abdominal pain No nausea. No vomiting. Genitourinary: No pain while urinating. Denies blood in urine. All other negative except as mentioned in HPI Physical Examination: General Appearance: Comfortable, in no acute respiratory distress, co-operative . Vitals reviewed and noted as below Head; Atraumatic, normocephalic ENT: no ulcers no thrush. Tongue is midline. Oropharynx: no rash or ulcers. EYES: Pupils are equal, round and reactive to light accommodation. Eye muscles and extraocular movement intact. Sclera is anicteric. Neck; supple no lymphadenopathy, no thyromegaly or bruit Lungs: normal respiratory rate/effort. Breath sounds bilateral decreased at bases with few crackles Heart: Normal rate. s1s2 normal. No rub or gallop. Extremities: trace edema. No varicose veins Neurological: Patient is alert, awake and oriented to person, place and time. No focal deficit. Strength bilateral appropriate and equal Skin: Warm and dry. Normal turgor. No rash. Palpitation: Normal elasticity for age Abdomen: Abdomen is soft. Bowel sounds +. There is no abdominal tenderness, no guarding/rigidity no organomegaly Psych: normal insight and normal affect/mood MSK: no joint tenderness or swelling. Digits and nails normal, no deformity : kidney or bladder not palpable Labs/imaging reviewed. Past medical history, past surgical history, family history, social history, allergy reviewed and noted as below Family hx: no hx of CKD. Rest non-contributory Objective - Vital Signs/Intake and Output Vital Signs (last 24 hours): Temp Pulse Resp BP Pulse Ox 98.4 F 85 27 H 176/104 H 94 L 08/13/17 04:00 08/13/17 09:19 08/13/17 06:00 08/13/17 09:19 08/13/17 06:00 Intake and Output: 08/13/17 08/13/17 06:59 18:59 Intake Total 400 Output Total 1125 Balance -725 - Medications Medications: Current Medications Aspirin (Aspirin Chewable) 81 mg PO DAILY [facility] Last Admin: 08/13/17 09:15 Dose: 81 mg Atorvastatin Calcium (Lipitor) 40 mg PO DAILY [facility] Calcitriol (Rocaltrol) 0.25 mcg PO DAILY [facility] Last Admin: 08/13/17 09:34 Dose: 0.25 mcg Cholecalciferol (Vitamin D) 2,000 intlu PO DAILY [facility] Doxazosin Mesylate (Cardura) 8 mg PO DAILY [facility] Last Admin: 08/13/17 09:15 Dose: 8 mg Ferrous Gluconate (Fergon) 324 mg PO TID [facility] Last Admin: 08/13/17 09:34 Dose: 324 mg Furosemide (Lasix) 40 mg IVP BID [facility] Last Admin: 08/13/17 09:17 Dose: 40 mg Gabapentin (Neurontin) 300 mg PO DAILY [facility] PRN Reason: Protocol Last Admin: 08/13/17 09:19 Dose: 300 mg Hydralazine HCl (Apresoline) 100 mg PO BID [facility] Last Admin: 08/13/17 09:13 Dose: 100 mg Hydralazine HCl (Apresoline) 10 mg IVP Q6 PRN PRN Reason: SBP above 160 and DBP above 80 Ceftriaxone Sodium (Rocephin 1 Gram Ivpb) 1 gm in 100 mls @ 100 mls/hr IVPB DAILY [facility] PRN Reason: Protocol Last Admin: 08/13/17 09:20 Dose: 100 mls/hr Azithromycin (Zithromax 500mg In Ns) 500 mg in 250 mls @ 167 mls/hr IVPB DAILY [facility] PRN Reason: Protocol Last Admin: 08/13/17 09:21 Dose: 167 mls/hr Insulin Detemir (Levemir) 15 unit SC HS [facility] Last Admin: 08/12/17 22:05 Dose: 15 unit Insulin Human Regular (Humulin R High) 0 units SC ACHS [facility] PRN Reason: Protocol Last Admin: 08/13/17 09:03 Dose: Not Given Levalbuterol HCl (Xopenex) 1.25 mg IH TIDRESP [facility] Last Admin: 08/13/17 08:01 Dose: 1.25 mg Tetrabenazine [ Xenazine] (Home Med) 1 tab PO DAILY [facility] Potassium Chloride (K-Dur 20 Meq Er Tab) 20 meq PO DAILY [facility] Tiotropium [place] (Spiriva) 18 mcg INH DAILY [facility] Last Admin: 08/13/17 09:21 Dose: 18 mcg Vitamin B Complex/Vit C/Folic Acid (Nephro-[place]) 1 tab PO 0800 [facility] - Labs Labs: 08/13/17 05:00 08/13/17 05:00 PT 14.2 SECONDS (9.4-12.5) H 08/12/17 08:00 INR 1.23 (0.93-1.08) H 08/12/17 08:00 APTT 27.2 Seconds (25.1-36.5) 08/12/17 08:00
[2017-08-13] MEDS: Cholecalciferol 1,000 INTLU TAB PO SCH (10:50)
[2017-08-13] MEDS: Multivitamin Vitamin B Complex (Nephro-Vite) Tab PO SCH (10:57)
[2017-08-13] MEDS: TETRABENAZINE PO SCH (11:56)
[2017-08-13] MEDS: Potassium Chloride 20 mEq ER Tab PO SCH (12:01)
--- NOTE | 2017-08-13 13:20 | PN ---
DATE: 08/13/2017 SUBJECTIVE: The patient's breathing is improved. He is able to walk around the room without shortness of breath. PHYSICAL EXAMINATION VITAL SIGNS: Stable. NECK: Negative JVD. LUNGS: Decreased breath sounds. HEART: Reveal S1, S2. EXTREMITIES: Decreasing edema. DATA: Echocardiogram shows marked LVH with an ejection fraction of approximately 45%-50%. Laboratories are noted. His creatinine did not increase. IMPRESSION 1. Status post acute congestive heart failure. 2. Hypertrophic cardiomyopathy. 3. Renal insufficiency. 4. Dyspnea. 5. Noncompliance with diet and medical advice. Given these findings, I have discussed with the patient and his significant other about his clinical condition. He is improved with diuretics without deterioration of kidney function. We will transfer the patient to Telemetry today. Begin ambulation. In the next 24 to 48 hours, if the patient continues to improve, he can be discharged and followed up in [place]. Dale Yeh MD
--- NOTE | 2017-08-13 13:56 | CON ---
DATE: 08/13/2017 PULMONARY CONSULTATION REASON FOR CONSULTATION:: Rule out pneumonia. REFERRING PHYSICIAN: Alan Pendleton DO History is obtained via extensive discussion with the patient and his significant other. I have also reviewed the chart at length. The patient is a 57-year-old male, with past medical history significant for diabetes mellitus, chronic kidney disease, hypertension, cerebrovascular accident, hyperlipidemia, who presents to [facility] - transferred from the cruise ship - with increasing shortness of breath at rest, dyspnea on exertion, and cough. The patient denies sputum production. The patient also denies chest pain, coughing up of blood, or chest pain - made worse with deep respirations. The patient did present to [facility] with low-grade fevers (99.3). No history of chills or infectious exposure. No history of night sweats, weight loss, or appetite change prior to the above events. No history of leg or calf pains. However, the patient did state that his legs became very swollen towards the end of the cruise. No history of syncope or diaphoresis. No history of recent trauma. REVIEW OF SYSTEMS: No history of nausea, vomiting, or diarrhea. No acute urinary symptoms. No new neurologic or musculoskeletal complaints. Rest of the review of systems is negative. ALLERGIES: CODIENE. SOCIAL HISTORY: Negative for tobacco and negative for alcohol. FAMILY HISTORY: No inheritable diseases. HOME MEDICATIONS: Include Spiriva, Zoloft, Lantus, Apresoline, Neurontin, Lasix, Cardura, Coreg, Lipitor, aspirin, Norvasc. PHYSICAL EXAMINATION: GENERAL: The patient appears comfortable this morning. He is not short of breath at rest. VITAL SIGNS: Temperature is 98.4, pulse 75, respirations 20, blood pressure 169/102. Oxygen saturation on nasal cannula is 95%. HEENT: Normocephalic, atraumatic. No JVD. CARDIOVASCULAR: Systolic ejection murmur at the lower left sternal border. Positive S3 gallop. LUNGS: Crackles at both bases. Minimal bilateral rhonchi. No wheezing. EXTREMITIES: Mild edema. No cyanosis, no clubbing. Calves are nontender to palpation. GI: Abdomen is soft, nontender, and nondistended. Bowel sounds are positive. SKIN: No acute rash. NEUROLOGIC: Limited at the present time. PERTINENT LABORATORY DATA: Chest x-ray was done yesterday and reviewed. There are bilateral pulmonary infiltrates consistent with acute congestive heart failure. There is also a possible small underlying patchy infiltrate noted at the left upper lobe. CBC: White count 9.2, hemoglobin 9.1, hematocrit 28.4, platelets of 190,000. Initial white count 12,200. Complete metabolic profile: Potassium 3.5, chloride 109. BUN 57, creatinine 3.9. Total protein 5.7, albumin 2.9. Rest of the metabolic profiles within normal limits. Initial B-type natriuretic peptide 8120. Peak troponin 0.10. IMPRESSION: 1. Acute congestive heart failure. 2. Intermediate troponin. 3. Acute on chronic kidney disease. 4. Rule out pneumonia, left upper lobe. 5. Diabetes mellitus. 6. Hypertension. PLAN: The patient presents to [facility] - transferred from the cruise ship - for increasing shortness of breath at rest, dyspnea on exertion, and cough. As above, the patient also stated that his legs were very swollen towards the end of the cruise. Lastly, the patient did present with low-grade fevers. He was thus admitted for additional evaluation. I did review the chest x-ray as above. There is moderately severe pulmonary edema/congestive heart failure noted. However, there is a possible small patchy infiltrate - in addition - in the left upper lobe. I would continue with the antibiotic coverage for now. Jones cultures are pending. The fevers have now completely resolved. The leukocytosis has also resolved. I will also repeat the chest x-ray - as a 2-view PA and lateral film - in the morning. I would continue with the treatment for acute congestive heart failure and possible cardiac ischemia as per Dr. Yeh. His input is noted. Input by Renal (Dr. Alcantara) is also noted. Repeat a.m. labs are pending. Clinical status of the patient is definitely improved - compared to his initial presentation. I will discuss the above with the entire ICU team the next few moments. I will also discuss above with Dr. Pendleton later this morning. Thank you very much for this pulmonary consultation. Yury Cuasey MD [facility] # [id number] [place]
--- NOTE | 2017-08-13 15:09 | PN ---
DATE: SUBJECTIVE: He is in the Intensive Care Unit right now. He is resting comfortably, feeling a lot better. He is eating a little bit better, but has not really gotten out of bed to chair. PHYSICAL EXAMINATION VITAL SIGNS: He has 98.4 temperature, 79 pulse; 166/92 blood pressure, also 169/102 blood pressure. I will adjust his blood pressure medications as a laboratory immunologist if the laboratory immunologist has not done yet. His respiratory rate was as high as 27 , it is down to 18. His oxygen saturation has been between 95 and 94 on nasal cannula. HEENT: His head is atraumatic, normocephalic. He is alert. He is looking at me. He is calm. Throat is moist. NECK: Supple. HEART: Regular rate. LUNGS: Decreased breath sounds bilaterally, fair inspiration. ABDOMEN: Soft, mildly obese, nontender. EXTREMITIES: No edema today. He is more comfortable today and tells me he is more comfortable. LABORATORY DATA: He has a 145 sodium; potassium is 3.5, I will replace some potassium. BUN 57, creatinine 3.9 which has improved since when he came in. His kidney functions are starting to get better. GFR is up to 16. Sugar is 91. Calcium is 9.4, magnesium is 2.2. Total bilirubin is 0.3. AST is 33, ALT is 40, alkaline phosphatase 56. His troponin I was 0.09, it was 0.1 when he came in, so it is still indeterminate. His total protein is 5.7. His urine is with moderate bacteria and is negative for the flu. Micro, has no growth and He is being seen by Renal, Cardiology, the Mammal Control Agent. He has multiple issues; congestive heart failure, acute; end-stage renal disease; pneumonia; urinary tract infection, diabetes, renal insufficiency towards acute kidney injury. He has diabetes, hypertension and intermittent pedal edema. We will continue aggressive treatment and care on Barak Ko Thank you very much. We will check his labs tomorrow. We will get him out of bed to chair. Alan Pendleton DO [place]
[2017-08-13] MEDS: Insulin Detemir 100 units/ml Vial (Levemir) SC SCH (22:08)
[2017-08-14 06:59] LABS: HEMOGLOBIN 9.2 g/dL (14.0-18.0); MEAN CORPUSCULAR HEMOGLOBIN 27.8 pg (25.0-35.0); MEAN CORPUSCULAR HGB CONC 31.9 g/dl (31.0-37.0); MEAN PLATELET VOLUME 10.7 fl (7.0-11.0); RBC 3.31 10^6/uL (3.5-6.1); RED CELL DISTRIBUTION WIDTH 14.9 % (11.5-14.5); WHITE BLOOD COUNT 8.6 10^3/ul (4.5-11.0)
[2017-08-14 07:11] LABS: ALBUMIN 2.9 g/dL (3.0-4.8); CALCIUM 9.8 mg/dL (8.4-10.5)
[2017-08-14] MEDS: Insulin Reg-HIGH-Coverage SC SCH ×4 (07:44→21:35)
--- NOTE | 2017-08-14 07:54 | PN ---
DATE: 08/14/2017 PULMONARY NOTE. SUBJECTIVE: The patient appears very comfortable this morning. He is not short of breath at rest. PHYSICAL EXAMINATION: VITAL SIGNS: Temperature is 98.1, pulse 82, respirations 18, blood pressure 169/100. Oxygen saturation on nasal cannula is 94%. HEENT: Normocephalic, atraumatic. No JVD. CARDIOVASCULAR: Systolic ejection murmur at the lower left sternal border. Positive S3 gallop. LUNGS: Less crackles at the bases. Less rhonchi. No wheezing. EXTREMITIES: Mild edema. No cyanosis. No clubbing. Calves are nontender to palpation. GI: Abdomen is soft, nontender and nondistended. Bowel sounds are positive. SKIN: No acute rash. NEUROLOGIC: Limited at the present time. IMPRESSION: 1. Acute congestive heart failure. 2. Intermediate troponin. 3. Acute on chronic kidney disease. 4. Rule out pneumonia - left upper lobe. 5. Diabetes mellitus. 6. Hypertension. PLAN: The patient appears very comfortable this morning. He is not short of breath at rest. He does state to feeling much, much better overall. On physical exam, his bronchospasm is much less. In addition, the alveolar-arterial gradient is also less. I will continue with the current nebulizer treatments for now. The patient remains on intravenous antibiotic therapy. The low-grade temperatures have fully resolved. The leukocytosis has also fully resolved. I will continue with the current antibiotic therapy for now. I did order a chest x-ray - for this morning - for comparison. I will check that when feasible. Clinical status of the patient is significantly improved - compared to the initial presentation. I will discuss the above with Dr. Pendleton this morning. Yury Causey MD ROXANNE
[2017-08-14] MEDS: Levalbuterol 1.25 MG/3 ML Inhal Soln UD IH SCH ×3 (08:01→20:12)
[2017-08-14] MEDS: Multivitamin Vitamin B Complex (Nephro-Vite) Tab PO SCH (08:54)
[2017-08-14] MEDS: Tiotropium 18 mcg Cap For Inhalation INH SCH (09:01)
[2017-08-14] MEDS: Potassium Chloride 20 mEq ER Tab PO SCH ×2 (09:02→09:08)
[2017-08-14] MEDS: Azithromycin 500MG/NS 250ml 500 MG/250 ML BAG IVPB SCH (09:02)
[2017-08-14] MEDS: cefTRIAXone 1 gm 1 GM/100 ML BAG IVPB SCH (09:02)
[2017-08-14] MEDS: TETRABENAZINE PO SCH (09:08)
[2017-08-14] MEDS: Cholecalciferol 1,000 INTLU TAB PO SCH (09:39)
--- NOTE | 2017-08-14 09:44 | RAD ---
HISTORY: COMPARISON: 08/12/2017. TECHNIQUE: Chest PA and lateral FINDINGS: LINES AND TUBES: None. LUNG AND PLEURA: There is interval improved aeration in both lungs with residual severe pulmonary venous congestion and mild interstitial pulmonary edema HEART AND MEDIASTINUM: The heart remains enlarged. The hilar and mediastinal contours are within normal limits. SKELETAL STRUCTURES: The bony structures are within normal limits for the patient's age. VISUALIZED UPPER ABDOMEN: Normal. OTHER FINDINGS: None. IMPRESSION: Improving congestive heart failure.
--- NOTE | 2017-08-14 10:29 | CP.PCM.PN ---
Subjective - Date & Time of Evaluation Date of Evaluation: 08/14/17 Time of Evaluation: 10:27 - Subjective Subjective: Nephrology Consultation Note: Assessment: stable Acute dyspnea with fluid overload and pneumonia ? CHF ? COPD Acute Kidney Injury (N17.9) Diabetic chronic Kidney Disease (E11.22) Hypertensive Chronic Kidney Disease (I12.9) Chronic Kidney Disease (N18.4) Stage 4 with ? mg proteinuria (R80.9) likely due to DM/HTN Anemia (D64.9), Hyperphosphatemia (E83.39), Secondary Hyperparathyroidism (E21.1 ), HTN (I12.9) Plan No acute need for renal replacement therapy at this time. Hypertension control with meds as ordered. Patient not on ACEI/ARB due to AGUSTINA. Increased coreg and norvasc Monitor Input/Output, daily weights and renal function with basic metabolic panel added iron supplements and multivitamin Continue home dose of calcitriol Agree with IV Lasix. added metolazone 5 bid. will increase lasix next if no adequate UOP, target 1-2 L negative atleast each day will consider ROSA once BP well controlled K supplementation as needed Dose meds/antibiotics for reduced GFR. Avoid fleets enema/magnesium based laxatives. Avoid nephrotoxins/NSAIDs/ iodinated contrast (unless needed emergently) Glycemic control Further work up/management as per primary team Thanks for allowing me to participate in care of your patient. Will follow patient with you. Please call if any Qs Dr Augustin Alcantara Office: [phone] HPI: Pt is a 57 male with hx of diabetes Mellitus ( 18 years) With Retinopathy, hypertension (years), CKD 4 with baseLine serum creatinine in mid 3 range, Patient aware about kidney disease for the last 10 years, follows up in [place], was on a cruise for last 7 days presented with complaints of Shortness of breath for the last 3 days with associated cough phlegm and leg swelling. pt also noted to have low-grade temperature on the cruise. He was not able to follow low salt diet while on the cruise Denies OTC/herbal meds or NSAIDs No recent iodinated contrast exposure. No obvious episodes of low BP. ROS: Cardiovascular: No chest pain. Pulmonary:improved shortness of breath but still + Gastrointestinal: denies abdominal pain No nausea. No vomiting. Genitourinary: No pain while urinating. Denies blood in urine. All other negative except as mentioned in HPI Physical Examination: General Appearance: Comfortable, in no acute respiratory distress, co-operative . Vitals reviewed and noted as below Head; Atraumatic, normocephalic ENT: no ulcers no thrush. Tongue is midline. Oropharynx: no rash or ulcers. EYES: Pupils are equal, round and reactive to light accommodation. Eye muscles and extraocular movement intact. Sclera is anicteric. Neck; supple no lymphadenopathy, no thyromegaly or bruit Lungs: normal respiratory rate/effort. Breath sounds bilateral decreased at bases with few crackles Heart: Normal rate. s1s2 normal. No rub or gallop. Extremities: trace edema. No varicose veins Neurological: Patient is alert, awake and oriented to person, place and time. No focal deficit. Strength bilateral appropriate and equal Skin: Warm and dry. Normal turgor. No rash. Palpitation: Normal elasticity for age Abdomen: Abdomen is soft. Bowel sounds +. There is no abdominal tenderness, no guarding/rigidity no organomegaly Psych: normal insight and normal affect/mood MSK: no joint tenderness or swelling. Digits and nails normal, no deformity : kidney or bladder not palpable Labs/imaging reviewed. Past medical history, past surgical history, family history, social history, allergy reviewed and noted as below Family hx: no hx of CKD. Rest non-contributory Objective - Vital Signs/Intake and Output Vital Signs (last 24 hours): Temp Pulse Resp BP Pulse Ox 98.1 F 90 20 161/86 H 94 L 08/14/17 06:00 08/14/17 10:05 08/14/17 06:00 08/14/17 10:05 08/14/17 06:00 Intake and Output: 08/14/17 08/14/17 06:59 18:59 Intake Total 620 240 Output Total 200 1075 Balance 420 -835 - Medications Medications: Current Medications Amlodipine Besylate (Norvasc) 10 mg PO DAILY [facility] Last Admin: 08/14/17 09:01 Dose: 10 mg Aspirin (Aspirin Chewable) 81 mg PO DAILY [facility] Last Admin: 08/14/17 08:59 Dose: 81 mg Atorvastatin Calcium (Lipitor) 40 mg PO [facility] Last Admin: 08/13/17 22:07 Dose: 40 mg Calcitriol (Rocaltrol) 0.25 mcg PO DAILY [facility] Last Admin: 08/14/17 09:01 Dose: 0.25 mcg Carvedilol (Coreg) 25 mg PO BID [facility] Last Admin: 08/14/17 09:01 Dose: 25 mg Cholecalciferol (Vitamin D) 2,000 intlu PO DAILY [facility] Last Admin: 08/14/17 09:39 Dose: 2,000 intlu Clonidine HCl (Catapres) 0.1 mg PO BID [facility] Last Admin: 08/14/17 10:05 Dose: 0.1 mg Doxazosin Mesylate (Cardura) 8 mg PO DAILY [facility] Last Admin: 08/14/17 09:00 Dose: 8 mg Ferrous Gluconate (Fergon) 324 mg PO TID [facility] Last Admin: 08/14/17 09:00 Dose: 324 mg Furosemide (Lasix) 40 mg IVP BID [facility] Last Admin: 08/14/17 09:41 Dose: 40 mg Gabapentin (Neurontin) 300 mg PO [facility] PRN Reason: Protocol Last Admin: 08/13/17 22:08 Dose: 300 mg Hydralazine HCl (Apresoline) 100 mg PO BID [facility] Last Admin: 08/14/17 09:00 Dose: 100 mg Hydralazine HCl (Apresoline) 10 mg IVP Q6 PRN PRN Reason: SBP above 160 and DBP above 80 Last Admin: 08/14/17 06:52 Dose: 10 mg Ceftriaxone Sodium (Rocephin 1 Gram Ivpb) 1 gm in 100 mls @ 100 mls/hr IVPB DAILY [facility] PRN Reason: Protocol Last Admin: 08/14/17 09:02 Dose: 100 mls/hr Azithromycin (Zithromax 500mg In Ns) 500 mg in 250 mls @ 167 mls/hr IVPB DAILY [facility] PRN Reason: Protocol Last Admin: 08/14/17 09:02 Dose: 167 mls/hr Insulin Detemir (Levemir) 15 unit SC HS [facility] Last Admin: 08/13/17 22:08 Dose: 15 unit Insulin Human Regular (Humulin R High) 0 units SC ACHS [facility] PRN Reason: Protocol Last Admin: 08/14/17 07:44 Dose: Not Given Levalbuterol HCl (Xopenex) 1.25 mg IH TIDRESP [facility] Last Admin: 08/14/17 08:01 Dose: 1.25 mg Metolazone (Zaroxolyn) 5 mg PO BID [facility] Stop: 08/17/17 10:31 Tetrabenazine [ Xenazine] (Home Med) 1 tab PO DAILY [facility] Last Admin: 08/14/17 09:08 Dose: Not Given Potassium Chloride (K-Dur 20 Meq Er Tab) 20 meq PO DAILY [facility] Last Admin: 08/14/17 09:02 Dose: 20 meq Potassium Chloride (K-Dur 20 Meq Er Tab) 20 meq PO BRK [facility] Last Admin: 08/14/17 09:08 Dose: Not Given Tiotropium Yaphank (Spiriva) 18 mcg INH DAILY [facility] Last Admin: 08/14/17 09:01 Dose: 18 mcg Vitamin B Complex/Vit C/Folic Acid (Nephro-Alberta) 1 tab PO 0800 [facility] Last Admin: 08/14/17 08:54 Dose: 1 tab - Labs Labs: 08/14/17 06:20 08/14/17 06:20 PT 14.2 SECONDS (9.4-12.5) H 08/12/17 08:00 INR 1.23 (0.93-1.08) H 08/12/17 08:00 APTT 27.2 Seconds (25.1-36.5) 08/12/17 08:00
[2017-08-14] MEDS: metOLazone 5 MG TAB PO SCH (10:30)
--- NOTE | 2017-08-14 11:19 | CARD ---
APPROVED REPORT EXAM: Two-dimensional and M-mode echocardiogram with Doppler and color Doppler. INDICATION 2D DIMENSIONS IVSd2.0 (0.7-1.1cm)LVDd4.7 (3.9-5.9cm) PWd1.8 (0.7-1.1cm)LVDs3.3 (2.5-4.0cm) FS (%) 28.6 %LVEF (%)50.0 (>50%) M-Mode DIMENSIONS Left Atrium (MM)5.10 (2.5-4.0cm)Aortic Root3.60 (2.2-3.7cm) Aortic Cusp Exc.2.00 (1.5-2.0cm) Aortic Valve AoV Peak Kvzyjnac871.0cm/Garth Peak GR.11mmHg Mitral Valve MV E Cdgnbkvv20.5cm/sMV E Peak Gr.92mmHgMV A Fiieftgu64.3cm/s E/A ratio1.9 TDI Lateral E' Peak V6.04cm/sMedial E' Peak V5.56cm/sE/Lateral E'15.0 E/Medial E'16.3 Tricuspid Valve TR Peak Nyhowtrd390pa/sRAP [id number] Peak Gr.46mmHg [id number] LEFT VENTRICLE There is moderate to severe concentric left ventricular hypertrophy. The systolic function is mildly impaired. RIGHT VENTRICLE The right ventricle is normal size. ATRIA The left atrium is mildly dilated. The right atrium size is normal. AORTIC VALVE The aortic valve is thickened but opens well. MITRAL VALVE The mitral valve is thickened but opens well. Mitral regurgitation is mild. TRICUSPID VALVE The tricuspid valve leaflets are thickened , but open well. There is mild tricuspid regurgitation. There is moderate pulmonary hypertension. PERICARDIAL EFFUSION There is no pericardial effusion. <Conclusion> Moderate to severe LVH NO LV outflow obstruction Mild LV systolic hypokinesis Dilated LA Mild MR and TR Moderate pulmonary hypertension
--- NOTE | 2017-08-14 14:41 | PN ---
DATE: SUBJECTIVE: I see him resting in bed. Oxygen is on. He is out of the intensive care unit. He is being seen by Cardiology, Renal, and Pulmonary. He is on Apresoline, aspirin, Cardura, Coreg, Fergon, insulin, potassium replacement, Lasix, Levemir, Lipitor, Nephro-Alberta, Neurontin, Norvasc, Glucotrol, Rocephin, Spiriva, tetrabenazine, vitamin D, Xopenex, and azithromycin. PHYSICAL EXAMINATION: GENERAL: He is alert. He is still short of breath, on 3 L of nasal cannula. VITAL SIGNS: He has 98.1 temp, 82 pulse, 169/100 blood pressure, 20 respiratory rate, 94% O2 saturation on 3 L nasal cannula. HEENT: Head atraumatic, normocephalic. He is looking at me. Definitely he is less short of breath at rest, but weak. Throat is dry. HEART: Regular rate. LUNGS: Decreased breath sounds, but clear bilaterally. ABDOMEN: Soft, obese. EXTREMITIES: With no edema. LABORATORY DATA: He has a white count of 8.6, hemoglobin 9.2, hematocrit 28.8, platelets are 218. He has 146 sodium, potassium is 3.4, replaced potassium, BUN is 64, creatinine 2.7, a bit better, GFR is 57, last blood sugar was 73, calcium 9.8, total bili is 0.3, AST is 33, ALT is 37, alk phos is 9, total protein is 5.6. ASSESSMENT AN PLAN: Methicillin-resistant Staphylococcus aureus is in his nares. He has been seen by Pulmonary, Cardiology, Renal. His blood pressure is a little elevated today. He needs physical therapy. I have to see what he can do in physical therapy. I will talk to Cardiology about adjusting his medications. He has got congestive heart failure, hypertrophic cardiomyopathy, renal insufficiency, dyspnea, I will watch very closely. Alan Pendleton DO
--- NOTE | 2017-08-14 15:45 | PN ---
DATE: 08/14/2017 SUBJECTIVE: The patient is still mildly dyspneic including dyspnea at rest. PHYSICAL EXAMINATION VITAL SIGNS: Blood pressure is 189/97, heart rate is in the 80s. NECK: Negative JVD. LUNGS: Crackles at the bases. HEART: Reveals S1, S2. EXTREMITIES: Without edema. LABORATORY DATA: BUN and creatinine is 54 over 3.7 with a potassium of 3.4, glucose is 90. IMPRESSION: 1. congestive heart failure. 2. Renal insufficiency. 3. Hypertrophic cardiomyopathy. 4. Persistent dyspnea. 5. Hypertension. PLAN: Given these findings, we will give the patient an extra dose of Lasix today. In addition, we will add clonidine to the regimen for better blood pressure control. Dale Yeh MD
[2017-08-14] MEDS: Insulin Detemir 100 units/ml Vial (Levemir) SC SCH (21:35)
[2017-08-15 06:29] LABS: MEAN CORPUSCULAR HEMOGLOBIN 27.8 pg (25.0-35.0); MEAN CORPUSCULAR HGB CONC 31.9 g/dl (31.0-37.0); MEAN PLATELET VOLUME 10.1 fl (7.0-11.0); RBC 3.24 10^6/uL (3.5-6.1); RED CELL DISTRIBUTION WIDTH 14.8 % (11.5-14.5); WHITE BLOOD COUNT 8.4 10^3/ul (4.5-11.0)
[2017-08-15 06:49] LABS: ALBUMIN 2.9 g/dL (3.0-4.8); CALCIUM 9.6 mg/dL (8.4-10.5)
[2017-08-15] MEDS: Levalbuterol 1.25 MG/3 ML Inhal Soln UD IH SCH ×3 (07:48→21:15)
[2017-08-15] MEDS: Insulin Reg-HIGH-Coverage SC SCH ×4 (08:06→22:02)
[2017-08-15] MEDS: Multivitamin Vitamin B Complex (Nephro-Vite) Tab PO SCH (08:20)
[2017-08-15] MEDS: Potassium Chloride 20 mEq ER Tab PO SCH ×2 (08:21→10:30)
[2017-08-15] MEDS: Tiotropium 18 mcg Cap For Inhalation INH SCH (10:25)
[2017-08-15] MEDS: Cholecalciferol 1,000 INTLU TAB PO SCH (10:27)
[2017-08-15] MEDS: cefTRIAXone 1 gm 1 GM/100 ML BAG IVPB SCH (10:31)
[2017-08-15] MEDS: metOLazone 5 MG TAB PO SCH ×3 (10:32→18:27)
[2017-08-15] MEDS: TETRABENAZINE PO SCH (10:32)
--- NOTE | 2017-08-15 10:34 | PN ---
DATE: 08/15/2017 PULMONARY NOTE SUBJECTIVE: The patient appears very comfortable this morning. He is not short of breath at rest. PHYSICAL EXAMINATION: VITAL SIGNS: Temperature is 98.5, pulse 79, respirations 18, blood pressure 164/95. Oxygen saturation on nasal cannula is 97%. HEENT: Normocephalic, atraumatic. No JVD. CARDIOVASCULAR: Systolic ejection murmur at the lower left sternal border. Positive S3 gallop. LUNGS: Less crackles at the bases. Much less rhonchi. No wheezing. EXTREMITIES: Less edema. No cyanosis. No clubbing. Calves are nontender to palpation. GI: Abdomen is soft, nontender and nondistended. Bowel sounds are positive. SKIN: No acute rash. NEUROLOGIC: Limited at the present time. PERTINENT LABORATORY DATA: Chest x-ray was repeated yesterday and reviewed. There is a definite decrease in the pulmonary vascular congestion. There are also much less left upper lobe changes. IMPRESSION: 1. Acute congestive heart failure. 2. Intermediate troponin. 3. Acute on chronic kidney disease. 4. Rule out pneumonia - left upper lobe. 5. Diabetes mellitus. 6. Hypertension. PLAN: The patient appears very comfortable this morning. He is not short of breath at rest. He did state that he ambulated yesterday and felt well. He states to feeling much, much better overall. On physical exam, his bronchospasm continues to resolve. In addition, there is no significant alveolar-arterial gradient. I will continue with the current nebulizer treatments for now. I did review the chest x-ray as above. The chest x-ray is significantly improved - compared to the initial film. I would continue with the treatment for congestive heart failure as per Cardiology. Input by Dr. Yeh is noted. I will also continue with the antibiotic coverage for now. The low-grade temperatures have fully resolved. The leukocytosis has also fully resolved. Clinical status of the patient is significantly improved. I will discuss the above with Dr. Pendleton. Yury Causey MD MTDJodie
--- NOTE | 2017-08-15 13:06 | PN ---
DATE: SUBJECTIVE: I am trying to get him in to the TCU to finish out his IV Lasix, his IV medications, his antibiotics and he also needs physical therapy. He is from the cruise ship, he is from [place] and he is stronger than yesterday, but still a little bit weak and he is eating a little bit better. PHYSICAL EXAMINATION: VITAL SIGNS: He has a 98.5 temp; 79 pulse; 182/101 blood pressure, I will adjust his blood pressure pills; 20 respiratory rate; 97% O2 sat on nasal cannula. HEENT: His head is atraumatic, normocephalic. HEART: Regular rate. LUNGS: Decreased breath sounds, but clear. ABDOMEN: Soft, obese, nontender. EXTREMITIES: No edema. MEDICATIONS: He is on Catapres, I am going to increase that to t.i.d.; Lasix IV 40; Levemir; Lipitor; Nephro-Alberta; Neurontin; he is on amlodipine 10; Glucotrol, Rocephin, Spiriva, Xenazine, vitamin D, Xopenex, Zaroxolyn, Zithromax, Zoloft. LABORATORY DATA: He has an 8.4 white count, 9 hemoglobin, 28.2 hematocrit with a 215 platelets. 147 sodium; potassium 3.3, I have to give him some potassium. He has a BUN of 51, creatinine 3.3. It is actually getting better, which I would like, but to continue to watch the renal failure. His last blood sugar was 97, calcium is 9.6, total bili is 0.2, AST is 32, ALT is 36, alk phos is 55. ASSESSMENT AND PLAN: He has a few things going on here, congestive heart failure, end-stage renal disease, pneumonia, urinary tract infection, hypertension, diabetes, renal insufficiency, low potassium, bad hypertension. We will continue with aggressive treatment and care. I am trying to get him to Transitional Care Unit today. He is being seen by Renal, Cardio, Pulmonary and I think he needs physical therapy before he can get on the plane to get back to [place]. Acute congestive heart failure, renal insufficiency, hypertrophic cardiomyopathy. Alan Pendleton DO [facility] # [id number]
--- NOTE | 2017-08-15 13:27 | PN ---
DATE: 08/15/2017 CARDIOLOGY FOLLOWUP SUBJECTIVE: The patient is in bed, depressed over not being able to go home. PHYSICAL EXAMINATION: VITAL SIGNS: Blood pressure is 173/92 with the heart rates in the 80s. NECK: Negative JVD. LUNGS: Without rales. HEART: Reveals S1, S2. EXTREMITIES: Without edema. LABORATORY DATA: Hemoglobin is 9.0. Chemistries: BUN and creatinine are 51 and 3.1. IMPRESSION: 1. Resolution of diastolic congestive heart failure. 2. Marked hypertrophic cardiomyopathy. 3. Accelerated hypertension. 4. Renal insufficiency. 5. Dyspnea. PLAN: Given these findings, I have discussed with the patient and his significant. They would like to go home as soon as possible. I have discussed with them about his continued care which will be necessary when he is home. It is unlikely his pressure will be normal and he will need to follow up with a comprehensive care to lower his blood pressure when he goes home. His renal insufficiency needs to be followed by a hot repairman in [place]. As per the patient's request, we will begin arrangements to organize his care to get the patient back to [place] as per the patient's request. Dale Yeh MD
--- NOTE | 2017-08-15 16:42 | CP.PCM.PN ---
Subjective - Date & Time of Evaluation Date of Evaluation: 08/15/17 Time of Evaluation: 16:41 - Subjective Subjective: Nephrology Consultation Note: Assessment: stable Acute dyspnea with fluid overload and pneumonia ? CHF ? COPD Acute Kidney Injury (N17.9) Diabetic chronic Kidney Disease (E11.22) Hypertensive Chronic Kidney Disease (I12.9) Chronic Kidney Disease (N18.4) Stage 4 with ? mg proteinuria (R80.9) likely due to DM/HTN Anemia (D64.9), Hyperphosphatemia (E83.39), Secondary Hyperparathyroidism (E21.1 ), HTN (I12.9) Plan No acute need for renal replacement therapy at this time. Hypertension control with meds as ordered. Patient not on ACEI/ARB due to AGUSTINA. Increased coreg and norvasc. Increased hydralazine 100 tid Monitor Input/Output, daily weights and renal function with basic metabolic panel added iron supplements and multivitamin Continue home dose of calcitriol Agree with IV Lasix. added metolazone 5 bid. will increase lasix next if no adequate UOP, target 1-2 L negative atleast each day will consider ROSA once BP well controlled K supplementation as needed Dose meds/antibiotics for reduced GFR. Avoid fleets enema/magnesium based laxatives. Avoid nephrotoxins/NSAIDs/ iodinated contrast (unless needed emergently) Glycemic control Further work up/management as per primary team Thanks for allowing me to participate in care of your patient. Will follow patient with you. Please call if any Qs Dr Augustin Alcantara Office: [phone] HPI: Pt is a 57 male with hx of diabetes Mellitus ( 18 years) With Retinopathy, hypertension (years), CKD 4 with baseLine serum creatinine in mid 3 range, Patient aware about kidney disease for the last 10 years, follows up in [place], was on a cruise for last 7 days presented with complaints of Shortness of breath for the last 3 days with associated cough phlegm and leg swelling. pt also noted to have low-grade temperature on the cruise. He was not able to follow low salt diet while on the cruise Denies OTC/herbal meds or NSAIDs No recent iodinated contrast exposure. No obvious episodes of low BP. ROS: Cardiovascular: No chest pain. Pulmonary:improved shortness of breath Gastrointestinal: denies abdominal pain No nausea. No vomiting. Genitourinary: No pain while urinating. Denies blood in urine. All other negative except as mentioned in HPI Physical Examination: General Appearance: Comfortable, in no acute respiratory distress, co-operative . Vitals reviewed and noted as below Head; Atraumatic, normocephalic ENT: no ulcers no thrush. Tongue is midline. Oropharynx: no rash or ulcers. EYES: Pupils are equal, round and reactive to light accommodation. Eye muscles and extraocular movement intact. Sclera is anicteric. Neck; supple no lymphadenopathy, no thyromegaly or bruit Lungs: normal respiratory rate/effort. Breath sounds bilateral clearer Heart: Normal rate. s1s2 normal. No rub or gallop. Extremities: trace edema. No varicose veins Neurological: Patient is alert, awake and oriented to person, place and time. No focal deficit. Strength bilateral appropriate and equal Skin: Warm and dry. Normal turgor. No rash. Palpitation: Normal elasticity for age Abdomen: Abdomen is soft. Bowel sounds +. There is no abdominal tenderness, no guarding/rigidity no organomegaly Psych: normal insight and normal affect/mood MSK: no joint tenderness or swelling. Digits and nails normal, no deformity : kidney or bladder not palpable Labs/imaging reviewed. Past medical history, past surgical history, family history, social history, allergy reviewed and noted as below Family hx: no hx of CKD. Rest non-contributory Objective - Vital Signs/Intake and Output Vital Signs (last 24 hours): Temp Pulse Resp BP Pulse Ox 99 F 72 16 178/103 H 97 08/15/17 12:00 08/15/17 13:59 08/15/17 12:00 08/15/17 13:59 08/15/17 06:00 Intake and Output: 08/15/17 08/15/17 06:59 18:59 Intake Total 360 Output Total 500 Balance -140 - Medications Medications: Current Medications Amlodipine Besylate (Norvasc) 10 mg PO DAILY [facility] Last Admin: 08/15/17 10:29 Dose: 10 mg Aspirin (Aspirin Chewable) 81 mg PO DAILY [facility] Last Admin: 08/15/17 10:30 Dose: 81 mg Atorvastatin Calcium (Lipitor) 40 mg PO HS [facility] Last Admin: 08/14/17 21:36 Dose: 40 mg Azithromycin (Zithromax) 500 mg PO DAILY [facility] Last Admin: 08/15/17 10:27 Dose: 500 mg Calcitriol (Rocaltrol) 0.25 mcg PO DAILY [facility] Last Admin: 08/15/17 10:30 Dose: 0.25 mcg Carvedilol (Coreg) 25 mg PO BID [facility] Last Admin: 08/15/17 10:27 Dose: 25 mg Cholecalciferol (Vitamin D) 2,000 intlu PO DAILY [facility] Last Admin: 08/15/17 10:27 Dose: 2,000 intlu Clonidine HCl (Catapres) 0.1 mg PO TID [facility] Last Admin: 08/15/17 13:59 Dose: 0.1 mg Doxazosin Mesylate (Cardura) 8 mg PO DAILY [facility] Last Admin: 08/15/17 10:26 Dose: 8 mg Ferrous Gluconate (Fergon) 324 mg PO TID [facility] Last Admin: 08/15/17 13:59 Dose: 324 mg Furosemide (Lasix) 40 mg IVP BID [facility] Last Admin: 08/15/17 10:25 Dose: 40 mg Gabapentin (Neurontin) 300 mg PO [facility] PRN Reason: Protocol Last Admin: 08/14/17 21:36 Dose: 300 mg Hydralazine HCl (Apresoline) 10 mg IVP Q6 PRN PRN Reason: SBP above 160 and DBP above 80 Last Admin: 08/15/17 08:21 Dose: 10 mg Hydralazine HCl (Apresoline) 100 mg PO Q8 [facility] Last Admin: 08/15/17 13:58 Dose: 100 mg Hydroxyzine HCl (Atarax) 25 mg PO Q8H PRN PRN Reason: Anxiety Ceftriaxone Sodium (Rocephin 1 Gram Ivpb) 1 gm in 100 mls @ 100 mls/hr IVPB DAILY [facility] PRN Reason: Protocol Stop: 08/17/17 10:59 Last Admin: 08/15/17 10:31 Dose: 100 mls/hr Insulin Detemir (Levemir) 15 unit SC [facility] Last Admin: 08/14/17 21:35 Dose: 15 unit Insulin Human Regular (Humulin R High) 0 units SC ACHS [facility] PRN Reason: Protocol Last Admin: 08/15/17 11:37 Dose: Not Given Levalbuterol HCl (Xopenex) 1.25 mg IH TIDRESP [facility] Last Admin: 08/15/17 13:16 Dose: Not Given Metolazone (Zaroxolyn) 5 mg PO BID [facility] Stop: 08/17/17 10:31 Last Admin: 08/15/17 10:32 Dose: 5 mg Tetrabenazine [ Xenazine] (Home Med) 1 tab PO DAILY [facility] Last Admin: 08/15/17 10:32 Dose: Not Given Potassium Chloride (K-Dur 20 Meq Er Tab) 20 meq PO DAILY [facility] Last Admin: 08/15/17 10:30 Dose: 20 meq Potassium Chloride (K-Dur 20 Meq Er Tab) 20 meq PO BRK [facility] Last Admin: 08/15/17 08:21 Dose: 20 meq Sertraline HCl (Zoloft) 100 mg PO DAILY [facility] Last Admin: 08/15/17 10:30 Dose: 100 mg Tiotropium [place] (Spiriva) 18 mcg INH DAILY [facility] Last Admin: 08/15/17 10:25 Dose: 18 mcg Vitamin B Complex/Vit C/Folic Acid (Nephro-Alberta) 1 tab PO 0800 [facility] Last Admin: 08/15/17 08:20 Dose: 1 tab - Labs Labs: 08/15/17 05:30 08/15/17 05:30 PT 14.2 SECONDS (9.4-12.5) H 08/12/17 08:00 INR 1.23 (0.93-1.08) H 08/12/17 08:00 APTT 27.2 Seconds (25.1-36.5) 08/12/17 08:00
[2017-08-15] MEDS: Insulin Detemir 100 units/ml Vial (Levemir) SC SCH (22:08)
[2017-08-16 07:26] LABS: HEMOGLOBIN 9.5 g/dL (14.0-18.0); MEAN CORPUSCULAR HGB CONC 32.2 g/dl (31.0-37.0); MEAN PLATELET VOLUME 10.6 fl (7.0-11.0); RBC 3.39 10^6/uL (3.5-6.1); RED CELL DISTRIBUTION WIDTH 14.6 % (11.5-14.5)
[2017-08-16 07:38] LABS: CALCIUM 9.9 mg/dL (8.4-10.5)
[2017-08-16] MEDS: Levalbuterol 1.25 MG/3 ML Inhal Soln UD IH SCH ×3 (07:45→20:35)
[2017-08-16] MEDS: Insulin Reg-HIGH-Coverage SC SCH ×4 (08:30→22:30)
[2017-08-16] MEDS ORDERED: Potassium Chloride 20 mEq ER Tab PO ONE ×2 (08:53→11:00)
[2017-08-16] MEDS: Potassium Chloride 20 mEq ER Tab PO SCH (08:55)
[2017-08-16] MEDS: Multivitamin Vitamin B Complex (Nephro-Vite) Tab PO SCH (09:02)
[2017-08-16] MEDS: Cholecalciferol 1,000 INTLU TAB PO SCH (09:02)
[2017-08-16] MEDS: cefTRIAXone 1 gm 1 GM/100 ML BAG IVPB SCH (09:08)
[2017-08-16] MEDS: Tiotropium 18 mcg Cap For Inhalation INH SCH (09:09)
[2017-08-16] MEDS: TETRABENAZINE PO SCH (09:09)
[2017-08-16] MEDS: metOLazone 5 MG TAB PO SCH (09:09)
--- NOTE | 2017-08-16 10:35 | PN ---
DATE: 08/16/2017 PULMONARY NOTE SUBJECTIVE: The patient appears very comfortable this morning. He is not short of breath at rest. PHYSICAL EXAMINATION VITAL SIGNS: Temperature is 98.2, pulse is 73, respirations 18/20, blood pressure 170/98. Oxygen saturation on nasal cannula is 98%. Oxygen saturation on room air after ambulation-93%. HEENT: Normocephalic, atraumatic. No JVD. CARDIOVASCULAR: Systolic ejection murmur at the lower left sternal border. Questionable S3 gallop. LUNGS: Much less crackles at the bases. Much less rhonchi. No wheezing. EXTREMITIES: Less edema. No cyanosis, no clubbing. Calves are nontender to palpation. GI: Abdomen is soft, nontender and nondistended. Bowel sounds are positive. SKIN: No acute rash. NEUROLOGIC: Limited at the present time. IMPRESSION: 1. Acute congestive heart failure. 2. Intermediate troponin. 3. Acute on chronic kidney disease. 4. Rule out pneumonia - left upper lobe. 5. Diabetes mellitus. 6. Hypertension. PLAN: The patient appears very comfortable this morning. He is not short of breath at rest. I did discuss the case with the patient and significant other at length. The patient again ambulated around the casey yesterday and "felt fine." He does state to feeling much, much better overall. On physical exam, his bronchospasm continues to resolve. In addition, the oxygen saturation on nasal cannula is now 98%. I will continue with the current pulmonary medications for now. The patient also remains on intravenous antibiotics. We can probably change to oral therapy at this point in time. Then temperatures have resolved. The leukocytosis has resolved. Culture results are negative. I would continue with the treatment for congestive heart failure as per Cardiology and Renal. Inputs are noted. Clinical status of the patient is significantly improved overall. I will discuss the above with Dr. Pendleton. Yury Causey MD ROXANNE
--- NOTE | 2017-08-16 13:47 | PN ---
DATE: 08/16/2017 CARDIOLOGY FOLLOWUP SUBJECTIVE: The patient ambulated without shortness of breath. PHYSICAL EXAMINATION: VITAL SIGNS: Blood pressure is 180 systolic. NECK: Negative JVD. LUNGS: Clear to auscultation. HEART: Reveals S1, S2. EXTREMITIES: Without edema. LABORATORY DATA: BUN and creatinine are 47 and 3.2, glucose is 139. Hemoglobin is 9.5. IMPRESSION: 1. Status post diastolic congestive heart failure. 2. Hypertrophic cardiomyopathy. 3. Accelerated hypertension. 4. Renal insufficiency. 5. Diabetes mellitus. 6. Dyspnea, which is now resolved. PLAN: Given these findings, although the patient's blood pressure is not perfectly controlled nor his kidney workup not complete, the patient has requested go back to [place]. The patient is hemodynamically stable to do so. I have discussed with the patient and family about the need to focus with their doctors in [place] about controlling blood pressure, sugar as well as weight loss. Low-salt diet is necessary. I will increase his clonidine from 0.1 to 0.2 given his pressure is 180 systolic. The patient is scheduled for transfer back to [place] today. Dale Yeh MD
--- NOTE | 2017-08-16 15:45 | PN ---
DATE: 08/16/2017 SUBJECTIVE: I saw Barak is sitting out of bed to chair this morning. He did go for a walk with his . He is doing better, less short of breath, much improved. He is on Apresoline, aspirin, Atarax, Cardura, Catapres, Coreg, Fergon, potassium, Lasix, Levemir, Lipitor, Nephro-Alberta, Neurontin, Norvasc, Rocaltrol, Rocephin, Spiriva, Xenazine, vitamin D, Xopenex, Zaroxolyn, Zithromax and Zoloft. He wants to go back to [place]. He wants to get on a flight and go. We are trying to get him ready to go. PHYSICAL EXAMINATION VITAL SIGNS: He has a 98.2 temperature, 73 pulse, 170/98 blood pressure, 20 respiratory rate, 98% O2 sat on nasal cannula. His blood pressures are high. I discussed that with Cardiology and they are monitoring that, they too want to get it too low because of his heart disease. HEENT: His head is atraumatic, normocephalic. HEART: Regular rate. LUNGS: Decreased breath sounds, but clear. ABDOMEN: Soft, obese, nontender. EXTREMITIES: Trace edema if any. LABORATORY DATA: He has 8 white count, 9.5 hemoglobin, 29.5 hematocrit with 240 platelets. He has sodium 144; potassium is 3.2, I will give him some potassium today; BUN 47, creatinine 3.2, continue to improve; GFR is 20; sugar is 139; calcium is 9.9; total bilirubin is 0.3; AST is 31; ALT is 37; alkaline phosphatase 61; and total protein is 6. He is being seen by Renal, Cardiology and Pulmonary. They all told me this is good if he is going to get at this time, will be 100%. We will continue to try and get him better and when he is allowed to go to the plane ride home to [place], we will discharge him. Continue with treatment and care until we get the okay. Alan Pendleton DO MTDJodie
--- NOTE | 2017-08-16 16:13 | CP.PCM.PN ---
Subjective - Date & Time of Evaluation Date of Evaluation: 08/16/17 Time of Evaluation: 16:11 - Subjective Subjective: Nephrology Consultation Note: Assessment: stable Acute dyspnea with fluid overload and pneumonia ? CHF ? COPD Acute Kidney Injury (N17.9) Diabetic chronic Kidney Disease (E11.22) Hypertensive Chronic Kidney Disease (I12.9) Chronic Kidney Disease (N18.4) Stage 4 with ? mg proteinuria (R80.9) likely due to DM/HTN Anemia (D64.9), Hyperphosphatemia (E83.39), Secondary Hyperparathyroidism (E21.1 ), HTN (I12.9) Plan No acute need for renal replacement therapy at this time. Hypertension control with meds as ordered. Patient not on ACEI/ARB due to AGUSTINA. Increased coreg and norvasc. Increased hydralazine 100 tid. added minoxidil 2.5 mg/day Monitor Input/Output, daily weights and renal function with basic metabolic panel added iron supplements and multivitamin Continue home dose of calcitriol Agree with IV Lasix. added metolazone 5 bid (but pt refused to take it) target 1-2 L negative atleast each day K supplementation as needed Dose meds/antibiotics for reduced GFR. Avoid fleets enema/magnesium based laxatives. Avoid nephrotoxins/NSAIDs/ iodinated contrast (unless needed emergently) Glycemic control Further work up/management as per primary team pt planned for d/c soon, stable for d/c from renal perspective. he was advised to f/up with his nephro in [facility] when reached there Thanks for allowing me to participate in care of your patient. Will follow patient with you. Please call if any Qs Dr Augustin Alcantara Office: [phone] HPI: Pt is a 57 male with hx of diabetes Mellitus ( 18 years) With Retinopathy, hypertension (years), CKD 4 with baseLine serum creatinine in mid 3 range, Patient aware about kidney disease for the last 10 years, follows up in [place], was on a cruise for last 7 days presented with complaints of Shortness of breath for the last 3 days with associated cough phlegm and leg swelling. pt also noted to have low-grade temperature on the cruise. He was not able to follow low salt diet while on the cruise Denies OTC/herbal meds or NSAIDs No recent iodinated contrast exposure. No obvious episodes of low BP. ROS: Cardiovascular: No chest pain. Pulmonary:improved shortness of breath Gastrointestinal: denies abdominal pain No nausea. No vomiting. Genitourinary: No pain while urinating. Denies blood in urine. All other negative except as mentioned in HPI Physical Examination: General Appearance: Comfortable, in no acute respiratory distress, co-operative . Vitals reviewed and noted as below Head; Atraumatic, normocephalic ENT: no ulcers no thrush. Tongue is midline. Oropharynx: no rash or ulcers. EYES: Pupils are equal, round and reactive to light accommodation. Eye muscles and extraocular movement intact. Sclera is anicteric. Neck; supple no lymphadenopathy, no thyromegaly or bruit Lungs: normal respiratory rate/effort. Breath sounds bilateral clearer Heart: Normal rate. s1s2 normal. No rub or gallop. Extremities: 1+ edema. No varicose veins Neurological: Patient is alert, awake and oriented to person, place and time. No focal deficit. Strength bilateral appropriate and equal Skin: Warm and dry. Normal turgor. No rash. Palpitation: Normal elasticity for age Abdomen: Abdomen is soft. Bowel sounds +. There is no abdominal tenderness, no guarding/rigidity no organomegaly Psych: normal insight and normal affect/mood MSK: no joint tenderness or swelling. Digits and nails normal, no deformity : kidney or bladder not palpable Labs/imaging reviewed. Past medical history, past surgical history, family history, social history, allergy reviewed and noted as below Family hx: no hx of CKD. Rest non-contributory Objective - Vital Signs/Intake and Output Vital Signs (last 24 hours): Temp Pulse Resp BP Pulse Ox 98.3 F 67 18 139/81 98 08/16/17 12:00 08/16/17 15:00 08/16/17 12:00 08/16/17 15:00 08/16/17 10:16 Intake and Output: 08/16/17 08/16/17 06:59 18:59 Intake Total 1380 Output Total 3750 Balance -2370 - Medications Medications: Current Medications Amlodipine Besylate (Norvasc) 10 mg PO DAILY [facility] Last Admin: 08/16/17 09:01 Dose: 10 mg Aspirin (Aspirin Chewable) 81 mg PO DAILY [facility] Last Admin: 08/16/17 09:02 Dose: 81 mg Atorvastatin Calcium (Lipitor) 40 mg PO HS [facility] Last Admin: 08/15/17 22:08 Dose: 40 mg Azithromycin (Zithromax) 500 mg PO DAILY [facility] Last Admin: 08/16/17 09:01 Dose: 500 mg Calcitriol (Rocaltrol) 0.25 mcg PO DAILY [facility] Last Admin: 08/16/17 09:02 Dose: 0.25 mcg Carvedilol (Coreg) 25 mg PO BID [facility] Last Admin: 08/16/17 09:02 Dose: 25 mg Cholecalciferol (Vitamin D) 2,000 intlu PO DAILY [facility] Last Admin: 08/16/17 09:02 Dose: 2,000 intlu Clonidine HCl (Catapres) 0.2 mg PO TID [facility] Last Admin: 08/16/17 15:00 Dose: 0.2 mg Doxazosin Mesylate (Cardura) 8 mg PO DAILY [facility] Last Admin: 08/16/17 09:01 Dose: 8 mg Ferrous Gluconate (Fergon) 324 mg PO TID [facility] Last Admin: 08/16/17 15:00 Dose: 324 mg Furosemide (Lasix) 80 mg IVP BID [facility] Last Admin: 08/16/17 09:03 Dose: 80 mg Gabapentin (Neurontin) 300 mg PO [facility] PRN Reason: Protocol Last Admin: 08/15/17 22:09 Dose: 300 mg Hydralazine HCl (Apresoline) 10 mg IVP Q6 PRN PRN Reason: SBP above 160 and DBP above 80 Last Admin: 08/15/17 08:21 Dose: 10 mg Hydralazine HCl (Apresoline) 100 mg PO Q8 [facility] Last Admin: 08/16/17 14:59 Dose: 100 mg Hydroxyzine HCl (Atarax) 25 mg PO Q8H PRN PRN Reason: Anxiety Ceftriaxone Sodium (Rocephin 1 Gram Ivpb) 1 gm in 100 mls @ 100 mls/hr IVPB DAILY [facility] PRN Reason: Protocol Stop: 08/17/17 10:59 Last Admin: 08/16/17 09:08 Dose: 100 mls/hr Insulin Detemir (Levemir) 15 unit SC [facility] Last Admin: 08/15/17 22:08 Dose: 15 unit Insulin Human Regular (Humulin R High) 0 units SC [facility] PRN Reason: Protocol Last Admin: 08/16/17 11:52 Dose: 1 units Levalbuterol HCl (Xopenex) 1.25 mg IH TIDRESP [facility] Last Admin: 08/16/17 13:31 Dose: 1.25 mg Metolazone (Zaroxolyn) 5 mg PO BID [facility] Stop: 08/17/17 10:31 Last Admin: 08/16/17 09:09 Dose: Not Given Minoxidil (Minoxidil) 2.5 mg PO DAILY [facility] Last Admin: 08/16/17 11:00 Dose: 2.5 mg Tetrabenazine [ Xenazine] (Home Med) 1 tab PO DAILY [facility] Last Admin: 08/16/17 09:09 Dose: Not Given Potassium Chloride (K-Dur 20 Meq Er Tab) 20 meq PO BRK [facility] Last Admin: 08/16/17 08:55 Dose: Not Given Sertraline HCl (Zoloft) 100 mg PO DAILY [facility] Last Admin: 08/16/17 09:01 Dose: 100 mg Tiotropium [place] (Spiriva) 18 mcg INH DAILY [facility] Last Admin: 08/16/17 09:09 Dose: 18 mcg Vitamin B Complex/Vit C/Folic Acid (Nephro-Alberta) 1 tab PO 0800 [facility] Last Admin: 08/16/17 09:02 Dose: 1 tab - Labs Labs: 08/16/17 07:00 08/16/17 07:00 PT 14.2 SECONDS (9.4-12.5) H 08/12/17 08:00 INR 1.23 (0.93-1.08) H 08/12/17 08:00 APTT 27.2 Seconds (25.1-36.5) 08/12/17 08:00
[2017-08-16] MEDS: Insulin Detemir 100 units/ml Vial (Levemir) SC SCH (22:42)
[2017-08-17 07:11] LABS: HEMOGLOBIN 9.1 g/dL (14.0-18.0); MEAN CELL VOLUME 86.1 fl (80.0-105.0); MEAN CORPUSCULAR HEMOGLOBIN 27.6 pg (25.0-35.0); MEAN PLATELET VOLUME 9.9 fl (7.0-11.0); RBC 3.3 10^6/uL (3.5-6.1); RED CELL DISTRIBUTION WIDTH 14.3 % (11.5-14.5); WHITE BLOOD COUNT 8.5 10^3/ul (4.5-11.0)
[2017-08-17 07:33] LABS: ALB/GLOB RATIO 1.1 (1.1-1.8); CALCIUM 9.8 mg/dL (8.4-10.5)
[2017-08-17] MEDS: Levalbuterol 1.25 MG/3 ML Inhal Soln UD IH SCH ×3 (08:17→20:01)
[2017-08-17] MEDS ORDERED: Potassium Chloride 20 mEq ER Tab PO SCH (08:27)
[2017-08-17] MEDS ORDERED: Potassium Chloride 20 mEq ER Tab PO ONE (08:27)
[2017-08-17] MEDS: Insulin Reg-HIGH-Coverage SC SCH ×4 (09:56→21:03)
--- NOTE | 2017-08-17 10:36 | PN ---
DATE: 08/17/2017 PULMONARY NOTE SUBJECTIVE: The patient appears very comfortable this morning. He is not short of breath at rest. PHYSICAL EXAMINATION: VITAL SIGNS: Temperature is 98.3, pulse 70, respirations 18/20, blood pressure 169/92. Oxygen saturation on CPAP is 96%. Oxygen saturation on nasal cannula is 98%. HEENT: Normocephalic, atraumatic. No JVD. CARDIOVASCULAR: Systolic ejection murmur at the lower left sternal border. Questionable S3 gallop. LUNGS: Minimal/less crackles at the bases. Very minimal/less rhonchi. No wheezing. EXTREMITIES: Less edema. No cyanosis, no clubbing. Calves are nontender to palpation. GASTROINTESTINAL: Abdomen is soft, nontender and nondistended. Bowel sounds are positive. SKIN: No acute rash. NEUROLOGIC: Exam limited to present time. IMPRESSION: 1. Acute congestive heart failure. 2. Intermediate troponin. 3. Acute on chronic kidney disease. 4. Rule out pneumonia - left upper lobe. 5. Diabetes mellitus. 6. Hypertension. PLAN: The patient appears very comfortable this morning. He is not short of breath at rest. He does state to feeling much, much better overall. He is now ambulating without any shortness of breath. On physical exam, his bronchospasm continues to resolve. In addition, there is no significant alveolar-arterial gradient. I will continue the current nebulizer treatments for now. The patient remains on intravenous antibiotic therapy. Temperatures have fully resolved. The leukocytosis has also fully resolved. I would continue with the treatment for congestive heart failure as per Cardiology and Renal. Inputs are noted. Clinical status of the patient is significantly improved overall. He is for discharge in near future. I did discuss the above with Dr. Pendleton. Yury Causey MD ROXANNE
[2017-08-17] MEDS: Cholecalciferol 1,000 INTLU TAB PO SCH (11:01)
[2017-08-17] MEDS: Multivitamin Vitamin B Complex (Nephro-Vite) Tab PO SCH (11:01)
[2017-08-17] MEDS: cefTRIAXone 1 gm 1 GM/100 ML BAG IVPB SCH (11:04)
[2017-08-17] MEDS: Tiotropium 18 mcg Cap For Inhalation INH SCH (12:07)
[2017-08-17] MEDS: Potassium Chloride 20 mEq ER Tab PO SCH (12:34)
[2017-08-17] MEDS: TETRABENAZINE PO SCH (12:34)
--- NOTE | 2017-08-17 14:46 | PN ---
DATE: 08/17/2017 CARDIOLOGY FOLLOWUP SUBJECTIVE: The patient ambulated on room air with a pulse oximetry is greater than 90 today. He is comfortable and has been off oxygen for 24 hours. PHYSICAL EXAMINATION VITAL SIGNS: Blood pressure varies from 140 systolic to 160 systolic. NECK: Negative JVD. LUNGS: Clear to auscultation. HEART: Reveals S1, S2. EXTREMITIES: Without edema. LABORATORY DATA: Hemoglobin is 9.1. Chemistries: BUN and creatinine is 53 and 3.3, glucose is 123. IMPRESSION: 1. Improvement of his respiratory status. 2. Hypertension, which is better with the addition of clonidine. 3. Renal insufficiency. 4. Hypertrophic cardiomyopathy. 5. Diabetes mellitus. 6. Dyspnea, which has resolved. PLAN: Given these findings, the patient is scheduled to travel back to [place] tomorrow. Their flight is in the morning. I have discussed the plans with the patient and his family. Dale Yeh MD
[2017-08-17] MEDS: Insulin Detemir 100 units/ml Vial (Levemir) SC SCH (21:08)
--- NOTE | 2017-08-18 03:37 | DS ---
HOSPITAL COURSE: cruise ship, will be going back to [place] in the next 24 hours. He wants to go. He is feeling better, got the okay from Renal, Cardio, and Pulmonary, asked me to discharge him today. PHYSICAL EXAMINATION: VITAL SIGNS: 98.3 temperature, 70 pulse, 169/92, also 140/78 blood pressures; 20 respiratory rate, 96% O2 sat. He also gets CPAP at home. His vital signs are good. HEENT: Head is atraumatic, normocephalic. HEART: Regular rate. LUNGS: Decreased breath sounds, but clear. ABDOMEN: Soft, morbidly obese, nontender. EXTREMITIES: Trace edema. LABORATORY DATA: He has a white count of 8.5, hemoglobin 9.1, 28.4 hematocrit with 223 platelets. He has a 143 sodium, potassium is 3.1 low, given 40 mEq of potassium today, BUN 53, creatinine 3.3 that is about his baseline. His last blood sugar is 110, calcium is 9.8, total bili is 0.3, AST is 38, ALT is 32, alk phos 63. ASSESSMENT AND PLAN: He is going to be discharged today. I understand he will be flying back to [place] tomorrow. He was told a no-salt diet, lot of water and follow up with his primary care doctor on Monday and also get blood test on Monday. He was here for numerous things. He had congestive heart failure. He had some acute kidney injury, pneumonia, cardiomyopathy, hypertension, diabetes, urinary tract infection, renal insufficiency, and low potassium. Alan Pendleton DO MTDJodie
[2017-08-18 06:10] VITALS: RESP 20; TEMP 97.5
[2017-08-18] MEDS: Insulin Reg-HIGH-Coverage SC SCH (07:58)
[2017-08-18] MEDS: Levalbuterol 1.25 MG/3 ML Inhal Soln UD IH SCH (08:07)
[2017-08-18] MEDS: Cholecalciferol 1,000 INTLU TAB PO SCH (08:22)
[2017-08-18] MEDS: Tiotropium 18 mcg Cap For Inhalation INH SCH (08:23)
[2017-08-18] MEDS: Multivitamin Vitamin B Complex (Nephro-Vite) Tab PO SCH (08:25)
[2017-08-18 08:28] VITALS: BP 134/83
[2017-08-18 08:33] VITALS: PULSE 72
[2017-08-18 09:16] VITALS: O2SAT 99
--- NOTE | 2017-08-18 10:07 | PN ---
DATE: 08/18/2017 PULMONARY NOTE SUBJECTIVE: The patient appears very comfortable this morning. He is not short of breath at rest. PHYSICAL EXAMINATION VITAL SIGNS: Temperature is 97.5, pulse is 73, respirations 18/20, blood pressure 142/84. Oxygen saturation on nasal cannula is 95%. HEENT: Normocephalic, atraumatic. No JVD. CARDIOVASCULAR: Systolic ejection murmur at the lower left sternal border. Questionable S3 gallop. LUNGS: Very minimal/less crackles at the bases. No rhonchi or wheezing this morning. EXTREMITIES: Less edema. No cyanosis, no clubbing. Calves are nontender to palpation. GI: Abdomen is soft, nontender and nondistended. Bowel sounds are positive. SKIN: No acute rash. NEUROLOGIC: Limited at the present time. IMPRESSION: 1. Acute congestive heart failure. 2. Intermediate troponin. 3. Acute on chronic kidney disease. 4. Rule out pneumonia - left upper lobe. 5. Diabetes mellitus. 6. Hypertension. PLAN: The patient appears very comfortable this morning. He is not short of breath at rest. He does state to feeling much, much better overall, and is anxious to be discharged. I did discuss the case with the patient and significant other. They both state that they were ambulating without any problems yesterday. On physical exam, his bronchospasm continues to resolve. In addition, there is no significant alveolar-arterial gradient. I will continue with the current nebulizer treatments for now. The patient also remains on oral antibiotic therapy. Temperatures have fully resolved. The leukocytosis has fully resolved. The clinical status of this patient is significantly improved overall. He is for probable discharge today - flying home to [place]. The patient will travel with oxygen and with a nurse during his trip. I did discuss the above with Dr. Pendleton. Yury Causey MD [facility]
--- NOTE | 2017-08-19 06:21 | DS ---
HISTORY OF PRESENT ILLNESS: He is from [place], he was on a cruise ship and got sick and came to the hospital. He had CHF, he had endstage renal disease, he had pneumonia, UTI, hypertension, diabetes, renal insufficiency, low potassium, cardiomyopathy and he is here with his and doing better. He is going home on Apresoline, Spiriva, potassium, Zoloft,, Lasix, Neurontin, Cardura, vitamin D, Coreg, chewable aspirin, Norvasc, Fergon, Rocaltrol, Lipitor, clonidine, Nephro-Alberta, Xopenex, Zithromax, Atarax, Xenazine, and Lantus. The nurse there with him from the insurance [employer] is taking the trip with him to [place], he has an appointment already with his primary care doctor on Monday. PHYSICAL EXAMINATION: VITAL SIGNS: He has a 97.5 temp, 72 pulse, 134/80 blood pressure, 99% O2 sat on room air, 20 respiratory rate. GENERAL: He is alert, happy and smiling, in no acute distress. He is walking in the [place] very well with his , no shortness of breath. HEENT: Head is atraumatic, normocephalic. Throat is moist. NECK: Supple. He is eating very well. HEART: Regular rate. LUNGS: Clear to auscultation bilaterally. No wheezes, rhonchi or rales. ABDOMEN: Soft, nontender, positive bowel sounds. A little bit obese. EXTREMITIES: Trace edema if any. LABORATORY DATA: He has an 8.5 white count, 9.1 hemoglobin, 28.4 hematocrit, with 223 platelets. He has a 143 sodium; potassium is 3.1, I gave him some potassium replacement. BUN 63, creatinine 3.3, that is his baseline. Last blood sugar was 113. AST is 30, ALT is 32, alk phos 63. PLAN: He is really as good as he is going to get. He has got chronic disease, he is never going to 100%. Follow up with his doctors. I discussed with cardio and pulmonary and renal, they all said he can be discharged. Discussed with the nurse who has taken him on his trip to [place] and she should do fine, she understands the plan. Alan Pendleton DO [facility] # [id number] [facility]
== END 2017-08-18 09:23 | disposition home or self-care (01) | DRG 291 ==
LOC: ED 07:09 → ERH 09:07 → 2RNO 10:51 → CCU 12:15 → 3RSO 08-13 18:11
PROVIDERS: ADMIT Family Medicine; ATTEND Family Medicine
DX: I13.0 Hypertensive heart and chronic kidney disease with heart failure and stage 1 through stage 4 chronic kidney disease, or unspecified chronic kidney disease (principal); I50.41 Acute combined systolic (congestive) and diastolic (congestive) heart failure; J18.9 Pneumonia, unspecified organism; J44.0 Chronic obstructive pulmonary disease with (acute) lower respiratory infection; N17.9 Acute kidney failure, unspecified; N18.4 Chronic kidney disease, stage 4 (severe); N39.0 Urinary tract infection, site not specified; N25.81 Secondary hyperparathyroidism of renal origin; I42.2 Other hypertrophic cardiomyopathy; E11.22 Type 2 diabetes mellitus with diabetic chronic kidney disease; E11.51 Type 2 diabetes mellitus with diabetic peripheral angiopathy without gangrene; E83.39 Other disorders of phosphorus metabolism; E11.319 Type 2 diabetes mellitus with unspecified diabetic retinopathy without macular edema; E11.42 Type 2 diabetes mellitus with diabetic polyneuropathy; F32.9 Major depressive disorder, single episode, unspecified; D64.9 Anemia, unspecified; E78.00 Pure hypercholesterolemia, unspecified; Z79.4 Long term (current) use of insulin; Z79.82 Long term (current) use of aspirin; Z86.73 Personal history of transient ischemic attack (TIA), and cerebral infarction without residual deficits; Z91.11 Patient's noncompliance with dietary regimen